=== PATIENT | female | born 1960 | race Caucasian/White ===

== ENCOUNTER → 2016-12-26 | Outpatient (CLI) | payer BC | END | disposition home or self-care (01) | LOC: MW.RT 19:46 | PROVIDERS: ATTEND Internal Medicine | DX: G47.33 Obstructive sleep apnea (adult) (pediatric) (principal) | CPT/HCPCS: 95811 ==

== ENCOUNTER 2017-08-03 06:18 | Day surgery (SDC) | payer BC ==
[~2017-08-03 06:18] MED LIST: Lactated Ringers 1,000 ML IV SCH; Sodium Chloride 0.9% 10 ML Syringe FLUSH PRN; Sodium Chloride 0.9% 2.5 ML Syringe FLUSH PRN
[2017-08-03] MEDS ORDERED: Propofol 200 MG/20 ML SDV ONE ×2 (07:15→07:55)
[2017-08-03] MEDS ORDERED: Lidocaine 2% 5 ML SDV ONE (07:15)
--- NOTE | 2017-08-03 07:22 | PCM.PREANE ---
Preanesthetic Assessment - Anesthesia/Transfusion/Family Hx Anesthesia History: Prior Anesthesia Without Reaction Family History of Anesthesia Reaction: No Transfusion History: No Prior Transfusion(s) Intubation History: Unknown - Review of Systems General: No Symptoms Pulmonary: No Symptoms Cardiovascular: No Symptoms Gastrointestinal: No Symptoms Neurological: No Symptoms Other: Reports: None - Physical Assessment O2 Sat by Pulse Oximetry: 93 Respiratory Rate: 16 Vital Signs: Last Vital Signs Temp 36.5 C 08/03/17 06:30 Pulse 60 08/03/17 06:30 Resp 16 08/03/17 06:30 BP 178/66 H 08/03/17 06:30 Pulse Ox 93 L 08/03/17 06:30 Height: 1.63 m Weight: 101.605 kg ASA Class: 3 Mental Status: Alert & Oriented x3 Airway Class: Mallampati = 2 Dentition: Reports: [place](s) (x2 upper front) Thyro-Mental Finger Breadths: 2 Mouth Opening Finger Breadths: 2 ROM/Head Extension: Limited/Partial Lungs: Clear to Auscultation, Normal Respiratory Effort Cardiovascular: Regular Rate, Regular Rhythm - Allergies Allergies/Adverse Reactions: Allergies Allergy/AdvReac Type Severity Reaction Status Date / Time Penicillins Allergy Cannot Verified 06/12/14 13:54 Remember - Blood Blood Available: No - Anesthesia Plan Pre-Op Medication Ordered: None - Acknowledgements Anesthesia Type Planned: MAC Pt an Appropriate Candidate for the Planned Anesthesia: Yes Alternatives and Risks of Anesthesia Discussed w Pt/Guardian: Yes Pt/Guardian Understands and Agrees with Anesthesia Plan: Yes PreAnesthesia Questionnaire HEENT History: Reports: Other (See Below) Other HEENT History: wears glasses, glen hearing aids Cardiovascular History: Reports: Heart Murmur, High Cholesterol, Hypertension, Other (See Below) (IHSS) Respiratory History: Reports: Sleep Apnea, SOB (after one block) Other Respiratory History: uses CPAP Gastrointestinal History: Reports: Other (See Below) Other Gastrointestinal History: occasional heartburn Musculoskeletal History: Reports: Arthritis, Back Pain, Chronic Other Musculoskeletal History: DJD Psychiatric History: Reports: Anxiety, Depression Endocrine/Metabolic History: Reports: Obesity/BMI 30+ - Past Surgical History Head Surgeries/Procedures: Reports: None Musculoskeletal Surgical History: Reports: Knee Replacement (rt. TKR) - SUBSTANCE USE Smoking Status *Q: Never Smoker Second Hand Smoke Exposure: Yes Days Per Week of Alcohol Use: 0 Recreational Drug Use History: No - HOME MEDS Home Medications: Home Meds Carvedilol 25 mg PO DAILY 01/31/15 [History] atorvaSTATin [Lipitor] 10 mg PO DAILY 01/31/15 [History] Cholecalciferol (Vitamin D3) [Vitamin D3] 1,000 units PO ASDIRECTED 07/31/17 [ History] FLUoxetine HCl [Fluoxetine HCl] 2 tab PO DAILY 07/31/17 [History] Furosemide 40 mg PO DAILY 07/31/17 [History] Lysine 500 mg PO ASDIRECTED PRN 07/31/17 [History] Multivitamin [Multivitamins] 1 tab PO ASDIRECTED 07/31/17 [History] Cyanocobalamin (Vitamin B12) [Vitamin B12] 1 tab PO ASDIRECTED 08/01/17 [History ] Psyllium [Metamucil] 1 tab PO ASDIRECTED PRN 08/01/17 [History] - CURRENT (IN HOUSE) MEDS Current Meds: Current Medications Lactated Ringer's (Ringers, Lactated) 1,000 mls @ 125 mls/hr IV ASDIRECTED [facility] Last Admin: 08/03/17 06:36 Dose: 125 mls/hr Sodium Chloride (Saline Flush) 10 ml FLUSH ASDIRECTED PRN PRN Reason: Keep Vein Open Sodium Chloride (Saline Flush) 2.5 ml FLUSH ASDIRECTED PRN PRN Reason: Keep Vein Open
[2017-08-03] MEDS ORDERED: Midazolam 1 MG/ML 2 ML SDV ONE (07:39)
--- NOTE | 2017-08-03 08:15 | PCM.OPNOTE ---
- General Post-Op/Procedure Note Date of Surgery/Procedure: 08/03/17 Operative Procedure(s): Diagnostic colonoscopy Findings: Small ulcerative type lesions in the distal colon Pre Op Diagnosis: IBS-D, change in bowel habits Post-Op Diagnosis: Diverticulosis, small colonic lesions Anesthesia Technique: [facility] Primary Surgeon: Veda Osei Condition: Good
--- NOTE | 2017-08-03 08:29 | PCM.POSTAN ---
POST ANESTHESIA ASSESSMENT - MENTAL STATUS Mental Status: Alert, Oriented - RESPIRATORY Respiratory Status: Respiratory Rate WNL - CARDIOVASCULAR CV Status: Pulse Rate WNL, Blood Pressure Stable - GASTROINTESTINAL GI Status: No Symptoms - PAIN Pain Score: 0 - POST OP HYDRATION Hydration Status: Adequate & Stable - OBSERVATIONS Free Text/Narrative:: no anesthesia problems
[2017-08-03 09:20] VITALS: BP 136/68
--- NOTE | 2017-08-03 20:52 | OR ---
SURGEON: RYANN HANEY MD DATE OF PROCEDURE: 08/03/2017 PREOPERATIVE DIAGNOSES: Change in bowel habits with a history of colon polyps and irritable bowel syndrome. POSTOPERATIVE DIAGNOSES: Diverticulosis, small mucosal lesions. PROCEDURE PERFORMED: Diagnostic colonoscopy. INSTRUMENT USED: Olympus colonoscope. ANESTHESIA: MAC. EXTENT OF EXAM: To the cecum. PREPARATION: Good. LIMITATIONS: None. INDICATION FOR EXAMINATION: The patient is a 56-year-old female, who presents with a history of colon polyps and IBS. Lately, she has been having a diarrhea that is worse than she has ever had before. The decision was made to proceed with a diagnostic colonoscopy. We discussed the procedure, expected perioperative course, and risks including bleeding, infection, or damage to surrounding structures, including perforation. The patient verbalized understanding and wishes to proceed. PROCEDURE IN DETAIL: The patient was brought to the endoscopy suite and placed in left lateral decubitus position. A time-out was completed verifying the patient's name, age, date of , allergies, and procedure to be performed. Monitored anesthesia care was induced and continuous oxygen was provided via nasal cannula. After adequate sedation was achieved, a digital rectal exam was performed. This exam was within normal limits. A well-lubricated colonoscope was then inserted in the rectum and advanced under direct visualization to the level of cecum. The cecum was identified by both visual and anatomic landmarks. Photograph was taken of the cecal cap. I was unable to retroflex the scope within the cecum. The scope was then fully withdrawn while examining the color, texture, anatomy, and integrity of the mucosa from the cecum to the anal canal. Towards the distal aspect of the colon there were small less than 1 mm ulcerative lesions along the colonic mucosa. These were scattered. Biopsies were taken of these lesions and sent as sigmoid colon biopsies. There were no polyps noted. The patient did have diverticulosis in the distal aspect of her colon as well. The scope was then brought in the rectum and retroflexed to allow visualization of the anal canal opening. This appeared normal and a photograph was taken. The scope was then straightened out and removed from the patient. The cecum to anus time was 9 minutes. The patient tolerated the procedure well and was taken to PACU in stable condition. ENDOSCOPIC DIAGNOSES: 1. Diverticulosis. 2. Mucosal lesions. RECOMMENDATIONS: Follow up in clinic in 2 weeks. MANISHA CHRISTINE /[id number]
== END 2017-08-03 08:59 | disposition home or self-care (01) ==
LOC: MW.SDS 06:18
PROVIDERS: ATTEND Surgery
DX: K52.9 Noninfective gastroenteritis and colitis, unspecified (principal); K57.30 Diverticulosis of large intestine without perforation or abscess without bleeding; Z86.010 Personal history of colon polyps; F41.9 Anxiety disorder, unspecified; F32.9 Major depressive disorder, single episode, unspecified; M19.90 Unspecified osteoarthritis, unspecified site; E78.00 Pure hypercholesterolemia, unspecified; I10 Essential (primary) hypertension; I42.1 Obstructive hypertrophic cardiomyopathy; N39.46 Mixed incontinence; G47.33 Obstructive sleep apnea (adult) (pediatric); Z88.0 Allergy status to penicillin; Z79.899 Other long term (current) drug therapy; Z99.89 Dependence on other enabling machines and devices; Z96.651 Presence of right artificial knee joint
CPT/HCPCS: 45380; 88305; J2250; J7120; 00810; J2704

== ENCOUNTER 2017-10-25 11:48 | Day surgery (SDC) | payer BC ==
[~2017-10-25 11:48] MED LIST changes: +Acetaminophen/HYDROcodone 325-5 MG Tab PO PRN; +Bupivacaine 0.25% 10 ML SDV INJECT SCH; +Clindamycin Phosphate in D5W 900 MG in Premix Bag 1 BAG IV SCH; +Lidocaine 2% 5 ML SDV ONE; +Midazolam 1 MG/ML 2 ML SDV ONE; +Ondansetron 4 MG/2 ML SDV ONE; +Propofol 200 MG/20 ML SDV ONE; -Sodium Chloride 0.9% 10 ML Syringe FLUSH PRN; -Sodium Chloride 0.9% 2.5 ML Syringe FLUSH PRN; +fentaNYL 100 MCG/2 ML SDV IVPUSH PRN; +fentaNYL 250 MCG/5 ML SDV ONE; +methylPREDNISolone Acetate 80 MG/ML SDV IARTIC SCH
[2017-10-25] MEDS ORDERED: Bupivacaine 0.5% 10 ML SDV ONE (12:23)
[2017-10-25] MEDS ORDERED: Lidocaine 1% 20 ML MDV ONE (12:23)
--- NOTE | 2017-10-25 12:37 | PCM.PREANE ---
Preanesthetic Assessment - Anesthesia/Transfusion/Family Hx Anesthesia History: Prior Anesthesia Reaction Other Type of Anesthesia Reaction Comment: vague recall, but was told she "crashed"..also itching from some medication Family History of Anesthesia Reaction: No Transfusion History: No Prior Transfusion(s) Intubation History: Unknown - Review of Systems General: No Symptoms Pulmonary: No Symptoms Cardiovascular: No Symptoms Gastrointestinal: No Symptoms Neurological: No Symptoms Other: Reports: None - Physical Assessment NPO Status Date: 10/24/17 Height: 1.63 m Weight: 106.141 kg ASA Class: 3 Mental Status: Alert & Oriented x3 Airway Class: Mallampati = 3 Dentition: Reports: [place](s) ROM/Head Extension: Full Lungs: Clear to Auscultation, Normal Respiratory Effort Cardiovascular: Regular Rate, Regular Rhythm, Murmurs - Allergies Allergies/Adverse Reactions: Allergies Allergy/AdvReac Type Severity Reaction Status Date / Time Penicillins Allergy Rash Verified 10/23/17 10:39 - Anesthesia Plan Pre-Op Medication Ordered: None - Acknowledgements Anesthesia Type Planned: General Anesthesia Pt an Appropriate Candidate for the Planned Anesthesia: Yes Alternatives and Risks of Anesthesia Discussed w Pt/Guardian: Yes Pt/Guardian Understands and Agrees with Anesthesia Plan: Yes Additional Comments: symptomatic gerd, htn, laura, Echo: mod , mild AI, mild TR, nl RV size, mild to mod elevation of RVSP, PreAnesthesia Questionnaire HEENT History: Reports: Hard of Hearing Other HEENT History: wears glasses, has bilateral hearing aides Cardiovascular History: Reports: Angina, Heart Failure, High Cholesterol, Hypertension Other Cardiovascular History: pre-op H&P states- hx of diastolic heart failure with subaortic left ventricular outflow tract obstruction- per Dr. Low. States has recent"chest pain"- no nitroglycerine Respiratory History: Reports: Sleep Apnea Other Respiratory History: uses CPAP Gastrointestinal History: Reports: Diverticulosis Other Gastrointestinal History: some heartburn Musculoskeletal History: Reports: Arthritis Other Musculoskeletal History: DJD Neurological History: Reports: Vertigo, Other (See Below) Other Neuro History: hx of motion sickness Psychiatric History: Reports: Anxiety, Depression Endocrine/Metabolic History: Reports: Obesity/BMI 30+ - Past Surgical History Head Surgeries/Procedures: Reports: None HEENT Surgical History: Reports: Adenoidectomy, Myringotomy w Tube(s), Tonsillectomy GI Surgical History: Reports: Colonoscopy Musculoskeletal Surgical History: Reports: Knee Replacement - SUBSTANCE USE Smoking Status *Q: Never Smoker Second Hand Smoke Exposure: Yes Days Per Week of Alcohol Use: 0 Recreational Drug Use History: No - HOME MEDS Home Medications: Home Meds Carvedilol 25 mg PO BID 01/31/15 [History] atorvaSTATin [Lipitor] 10 mg PO DAILY 01/31/15 [History] Cholecalciferol (Vitamin D3) [Vitamin D3] 1,000 units PO ASDIRECTED 07/31/17 [ History] FLUoxetine HCl [Fluoxetine HCl] 80 mg PO DAILY 07/31/17 [History] Furosemide 20 - 40 mg PO DAILY 07/31/17 [History] Lysine 500 mg PO ASDIRECTED PRN 07/31/17 [History] Multivitamin [Multivitamins] 1 tab PO ASDIRECTED 07/31/17 [History] Cyanocobalamin (Vitamin B12) [Vitamin B12] 1 tab PO ASDIRECTED 08/01/17 [History ] Psyllium [Metamucil] 1 tab PO ASDIRECTED PRN 08/01/17 [History] - CURRENT (IN HOUSE) MEDS Current Meds: Current Medications Hydrocodone Bitart/Acetaminophen ([place] 325-5 Mg) 1 - 2 tab PO Q4H PRN PRN Reason: Pain Bupivacaine HCl (Sensorcaine-Mpf 0.25%) 5 ml INJECT ONETIME MANNY Fentanyl (Sublimaze) 50 mcg IVPUSH .Q5MIN PRN PRN Reason: Pain Clindamycin Phosphate 900 mg/ (Premix) 50 mls @ 100 mls/hr IV ONCALL MANNY Lactated Ringer's (Ringers, Lactated) 1,000 mls @ 100 mls/hr IV ASDIRECTED MANNY Methylprednisolone Acetate (Depo-Medrol) 160 mg IARTIC ONETIME MANNY Discontinued Medications Bupivacaine HCl (Sensorcaine-Mpf 0.5%) Confirm Administered Dose 10 ml .ROUTE .STK-MED ONE Stop: 10/25/17 12:24 Fentanyl (Sublimaze) Confirm Administered Dose 250 mcg .ROUTE .STK-MED ONE Stop: 10/25/17 07:11 Lidocaine (Xylocaine-Mpf 2%) Confirm Administered Dose 5 ml .ROUTE .STK-MED ONE Stop: 10/25/17 07:10 Lidocaine HCl (Xylocaine 1%) Confirm Administered Dose 20 ml .ROUTE .STK-MED ONE Stop: 10/25/17 12:24 Midazolam HCl (Versed 1 Mg/Ml) Confirm Administered Dose 2 mg .ROUTE .[employer]-MED ONE Stop: 10/25/17 07:11 Ondansetron HCl (Zofran) Confirm Administered Dose 4 mg .ROUTE .[employer]-MED ONE Stop: 10/25/17 07:10 Propofol (Diprivan 20 Ml) Confirm Administered Dose 200 mg .ROUTE .[employer]-MED ONE Stop: 10/25/17 07:11
[2017-10-25] MEDS ORDERED: EPINEPHrine 1 MG/ML SDV ONE (13:17)
[2017-10-25] MEDS ORDERED: Bupivacaine 0.25% 10 ML SDV ONE (13:35)
--- NOTE | 2017-10-25 13:39 | PCM.OPNOTE ---
- General Post-Op/Procedure Note Date of Surgery/Procedure: 10/25/17 Operative Procedure(s): Excision left foot bony exostosis, L knee injection cortisone and Gel one Post-Op Diagnosis: DJD left midfoot with bony exostosis, DJD left knee Anesthesia Technique: General ET Tube Primary Surgeon: Maria Esther Gaytan Client Services Director: Jasmin Escalante in mLs: 5 Condition: Good Free Text/Narrative:: #[id number]
--- NOTE | 2017-10-25 14:14 | OR ---
SURGEON: Maria Esther Gaytan MD DATE OF PROCEDURE: 10/25/2017 PREOPERATIVE DIAGNOSES: 1. Degenerative joint disease, left midfoot with bony exostosis. 2. Degenerative joint disease, left knee. POSTOPERATIVE DIAGNOSES: 1. Degenerative joint disease, left midfoot with bony exostosis. 2. Degenerative joint disease, left knee. PROCEDURE: 1. Cortisone and Gel-One injection, left knee (a large joint). 2. Excision of bony exostosis, left foot. SQUAD BOSS: Jasmin Escalante PA-C. ANESTHESIA: General. ESTIMATED BLOOD LOSS: 5 mL. TOURNIQUET TIME: See operative record. COMPLICATIONS: None. DVT PROPHYLAXIS: Not indicated. IMPLANTS USED: None. BRIEF HISTORY: Dee Dee is a 57-year-old female who has had complaint of progressive left foot pain. Her pain is related primarily to shoe wear. She did have x-rays obtained, which did show degenerative changes in the midfoot region along with a bony exostosis dorsally. This appeared to be the area of a majority of her pain with the shoe wear. At that time, I recommended surgical intervention. Risks and goals of the procedure were discussed with the patient and were documented preoperatively. She agreed to proceed. The patient also has a history of degenerative changes in her left knee. She has tried injections in the past, which have given her short-term relief. I recommended that we repeat the injection today while she was under anesthesia. The risks and goals have been documented in her chart. She agreed to proceed. DESCRIPTION OF PROCEDURE: The patient was properly identified and brought to the operating room. She was transferred from the OR cart and placed on the operating table in a supine position. General anesthesia was administered. A time-out was performed to ensure correct site and procedure. Preoperative antibiotics were given. The surgical sites had been marked preoperatively. Using sterile technique, 3 mL of Gel-One solution, 2 mL of 1% lidocaine, 2 mL of 0.25% Marcaine, and 2 mL Depo-Medrol (80 mg/mL) were injected into the left knee joint via a superolateral retropatellar approach. A Band-Aid was then placed. The left lower extremity was then prepped in standard fashion using ChloraPrep solution. It was then sterilely draped. An Esmarch was used to exsanguinate the left lower extremity and the tourniquet was inflated to 250 mmHg. The site of the bony exostosis was identified. An incision was made over the dorsal aspect of the foot, centered over the exostosis. The subcutaneous tissues were dissected. Electrocautery was then used to incise directly over the exostosis. The periosteum was cleared from the edges. The exostosis was quite easy to identify. Using a combination of rongeur and osteotomes, the exostosis was removed. The bone was palpated and was felt to be at a neutral level, which would not cause any further shoe wear impingement. The wound was then copiously irrigated with saline solution. Bone wax was placed over the exposed bony areas. Tourniquet was then deflated. No excess bleeding was noted. Deep subcutaneous tissues were closed with 2-0 Monocryl. The skin was closed with a running 4-0 Monocryl suture. Steri-Strips and Benzoin were placed. 0.5% Marcaine was injected along the incisions following placement of the Steri-Strips. Xeroform gauze was placed over the wound and a bulky dressing was applied. She was awakened from her anesthetic and transferred back to the operating room cart. She was brought to recovery room in stable condition. All needle and sponge counts were correct. DAVID / NANCI /[id number]
--- NOTE | 2017-10-25 14:34 | PCM.POSTAN ---
POST ANESTHESIA ASSESSMENT - MENTAL STATUS Mental Status: Alert, Oriented - RESPIRATORY Respiratory Status: Respiratory Rate WNL, Airway Patent, O2 Saturation Stable, Supplemental Oxygen (per NC) - CARDIOVASCULAR CV Status: Pulse Rate WNL, Blood Pressure Stable - GASTROINTESTINAL GI Status: No Symptoms - POST OP HYDRATION Hydration Status: Adequate & Stable - OBSERVATIONS Free Text/Narrative:: Pt stable for discharge to phase II with no anesthesia complications.
[2017-10-25] MEDS ORDERED: Acetaminophen/HYDROcodone 325-10 MG Tab ONE (16:06)
[2017-10-25 17:06] VITALS: BP 158/70
== END 2017-10-25 16:45 | disposition home or self-care (01) ==
LOC: MW.SDS 11:48
PROVIDERS: ATTEND Orthopaedic Surgery
DX: M19.072 Primary osteoarthritis, left ankle and foot (principal); M89.9 Disorder of bone, unspecified; M17.12 Unilateral primary osteoarthritis, left knee; F41.9 Anxiety disorder, unspecified; F32.9 Major depressive disorder, single episode, unspecified; E78.5 Hyperlipidemia, unspecified; I10 Essential (primary) hypertension; E78.00 Pure hypercholesterolemia, unspecified; G47.33 Obstructive sleep apnea (adult) (pediatric); Z96.659 Presence of unspecified artificial knee joint; G47.30 Sleep apnea, unspecified; Z88.0 Allergy status to penicillin; Z79.899 Other long term (current) drug therapy; Z72.0 Tobacco use
CPT/HCPCS: 20610; 28120; A9270; J0171; J2250; J2405; J3010; J7120; 01480; J2704

== ENCOUNTER 2018-02-05 10:21 | Inpatient (IN) | payer BC ==
[~2018-02-05 10:21] MED LIST changes: -Acetaminophen/HYDROcodone 325-5 MG Tab PO PRN; -Bupivacaine 0.25% 10 ML SDV INJECT SCH; +Famotidine 20 MG/2 ML SDV IVPUSH SCH; -Lidocaine 2% 5 ML SDV ONE; -Midazolam 1 MG/ML 2 ML SDV ONE; -Ondansetron 4 MG/2 ML SDV ONE; -Propofol 200 MG/20 ML SDV ONE; +Ropivacaine 49.25 ML, Ketorolac 30 MG, EPINEPHrine 0.5 MG, cloNIDine 80 MCG in Sodium C... INJECT SCH; +Scopolamine 1.5 MG Transdermal Patch TRDERM SCH; +Tranexamic Acid 4,000 MG in Sodium Chloride 0.9% 100 ML IV SCH; -fentaNYL 100 MCG/2 ML SDV IVPUSH PRN; -fentaNYL 250 MCG/5 ML SDV ONE; -methylPREDNISolone Acetate 80 MG/ML SDV IARTIC SCH; +oxyCODONE ER 10 MG TAB.ER PO SCH
[2018-02-05] MEDS: Ketorolac 30 MG/ML SDV IVPUSH SCH ×4 (11:01→23:14)
[2018-02-05] MEDS: Acetaminophen 1,000 MG in Premix Bag 1 BAG IV SCH ×4 (11:02→23:11)
--- NOTE | 2018-02-05 11:14 | PCM.PREANE ---
Preanesthetic Assessment - Anesthesia/Transfusion/Family Hx Anesthesia History: Prior Anesthesia Without Reaction Other Type of Anesthesia Reaction Comment: vague recall, but was told she "crashed"..also itching from some medication Family History of Anesthesia Reaction: No Transfusion History: No Prior Transfusion(s) Intubation History: Unknown - Review of Systems General: No Symptoms Pulmonary: No Symptoms Cardiovascular: No Symptoms Gastrointestinal: No Symptoms Neurological: No Symptoms Other: Reports: None - Physical Assessment NPO Status Date: 02/04/18 Height: 1.63 m Weight: 99.79 kg ASA Class: 3 Mental Status: Alert & Oriented x3 Airway Class: Mallampati = 2 Dentition: Reports: Normal Dentition ROM/Head Extension: Full Lungs: Clear to Auscultation, Normal Respiratory Effort Cardiovascular: Regular Rate, Regular Rhythm - Allergies Allergies/Adverse Reactions: Allergies Allergy/AdvReac Type Severity Reaction Status Date / Time Penicillins Allergy Rash Verified 02/01/18 09:58 - Acknowledgements Anesthesia Type Planned: General Anesthesia Pt an Appropriate Candidate for the Planned Anesthesia: Yes Alternatives and Risks of Anesthesia Discussed w Pt/Guardian: Yes Pt/Guardian Understands and Agrees with Anesthesia Plan: Yes Additional Comments: PMH: IHHS, ASH, Moderate , mild AI, elevater RV systolic pressures, elevated LV and LQ end diastolic pressures, possible pulm htn, RV enlargement. PLAN: recomment GA instead of spinal to maintain filling pressures and to prevent afterload reduction which could cause problems with IHHS/AVH PreAnesthesia Questionnaire HEENT History: Reports: Other (See Below) Other HEENT History: wears glasses, glen hearing aids Cardiovascular History: Reports: Heart Murmur, High Cholesterol, Hypertension, Other (See Below) Other Cardiovascular History: pre-op H&P states- hx of diastolic heart failure with subaortic left ventricular outflow tract obstruction- per Dr. Low. superficial blood clots after vein stripping in left leg 4 yrs ago Respiratory History: Reports: Sleep Apnea, SOB Other Respiratory History: uses CPAP Gastrointestinal History: Reports: Other (See Below) Other Gastrointestinal History: occasional heartburn Genitourinary History: Reports: None Musculoskeletal History: Reports: Arthritis, Back Pain, Chronic Other Musculoskeletal History: DJD Neurological History: Reports: Vertigo, Other (See Below) Other Neuro History: hx of motion sickness Psychiatric History: Reports: Anxiety, Depression Endocrine/Metabolic History: Reports: Obesity/BMI 30+ Hematologic History: Reports: None Immunologic History: Reports: None Oncologic (Cancer) History: Reports: None Dermatologic History: Reports: None - Past Surgical History Head Surgeries/Procedures: Reports: None HEENT Surgical History: Reports: Adenoidectomy, Myringotomy w Tube(s), Tonsillectomy GI Surgical History: Reports: Colonoscopy Musculoskeletal Surgical History: Reports: Knee Replacement Other Musculoskeletal Surgeries/Procedures:: rt total knee arthroplasty - SUBSTANCE USE Smoking Status *Q: Never Smoker Second Hand Smoke Exposure: Yes Days Per Week of Alcohol Use: 0 Recreational Drug Use History: No - HOME MEDS Home Medications: Home Meds Carvedilol 25 mg PO BID 01/31/15 [History] atorvaSTATin [Lipitor] 10 mg PO DAILY 01/31/15 [History] Cholecalciferol (Vitamin D3) [Vitamin D3] 1,000 units PO ASDIRECTED 07/31/17 [ History] FLUoxetine HCl [Fluoxetine HCl] 80 mg PO DAILY 07/31/17 [History] Furosemide 20 - 40 mg PO DAILY 07/31/17 [History] Multivitamin [Multivitamins] 1 tab PO ASDIRECTED 07/31/17 [History] Cyanocobalamin (Vitamin B12) [Vitamin B12] 1 tab PO ASDIRECTED 08/01/17 [History ] Psyllium [Metamucil] 1 tab PO ASDIRECTED PRN 08/01/17 [History] - CURRENT (IN HOUSE) MEDS Current Meds: Current Medications Famotidine (Pepcid) 40 mg IVPUSH ONARRIVE MANNY Last Admin: 02/05/18 11:01 Dose: 40 mg Acetaminophen 1,000 mg/ Premix 100 mls @ 400 mls/hr IV ONARRIVE MANNY Last Admin: 02/05/18 11:02 Dose: 400 mls/hr Clindamycin Phosphate 900 mg/ (Premix) 50 mls @ 100 mls/hr IV ONCALL MANNY Ropivacaine 49.25 ml/Ketorolac Tromethamine 30 mg/Epinephrine HCl 0.5 mg/ Clonidine HCl 80 mcg/ Sodium Chloride 100 mls @ 50 mls/sec INJECT ASDIRECTED [facility] Lactated Ringer's (Ringers, Lactated) 1,000 mls @ 100 mls/hr IV ASDIRECTED [facility] Last Admin: 02/05/18 10:42 Dose: 100 mls/hr Tranexamic Acid 4,000 mg/ (Sodium Chloride) 140 mls @ 600 mls/hr IV ASDIRECTED MANNY Ketorolac Tromethamine (Toradol) 30 mg IVPUSH ONARRIVE [facility] Last Admin: 02/05/18 11:01 Dose: 30 mg Oxycodone HCl (Oxycontin) 10 mg PO ONARRIVE [facility] Last Admin: 02/05/18 11:01 Dose: 10 mg Scopolamine (Transderm-Scop) 1.5 mg TRDERM ONARRIVE [facility] Last Admin: 02/05/18 11:00 Dose: 1.5 mg Discontinued Medications Tranexamic Acid (Cyklokapron) Confirm Administered Dose 4,000 mg .ROUTE .[facility] ONE Stop: 02/05/18 07:23
[2018-02-05] MEDS ORDERED: fentaNYL 100 MCG/2 ML SDV ONE (11:24)
[2018-02-05] MEDS ORDERED: fentaNYL 250 MCG/5 ML SDV ONE (11:24)
[2018-02-05] MEDS ORDERED: Midazolam 1 MG/ML 2 ML SDV ONE (11:24)
[2018-02-05] MEDS ORDERED: Lidocaine 2% 5 ML SDV ONE (11:24)
[2018-02-05] MEDS ORDERED: Propofol 200 MG/20 ML SDV ONE (11:24)
[2018-02-05] MEDS ORDERED: Etomidate 2 MG/ML 20 ML SDV IVPUSH ONE (11:25)
[2018-02-05] MEDS ORDERED: Ondansetron 4 MG/2 ML SDV ONE (11:25)
--- NOTE | 2018-02-05 13:48 | PCM.OPNOTE ---
- General Post-Op/Procedure Note Date of Surgery/Procedure: 02/05/18 Operative Procedure(s): Left TKA Post-Op Diagnosis: DJD left knee Anesthesia Technique: General ET Tube Primary Surgeon: Maria Esther Gaytan Business Operations Manager: Jasmin Escalante in mLs: 50 Condition: Good Free Text/Narrative:: tt=48 min #[id number]
[2018-02-05] MEDS ORDERED: Ondansetron 4 MG/2 ML SDV IV PRN (13:53)
[2018-02-05] MEDS ORDERED: Aluminum Hydroxide/Magnesium Hydroxide/Simethicone Susp 30 ML Cup PO PRN (13:54)
[2018-02-05] MEDS ORDERED: Bisacodyl 10 MG Supp RECTAL PRN (13:54)
[2018-02-05] MEDS ORDERED: oxyCODONE 5 MG Tab PO PRN (13:54)
[2018-02-05] MEDS ORDERED: Psyllium Husk Powder Sugar Free 5.85 GM Packet PO PRN (13:57)
[2018-02-05] MEDS ORDERED: Multivitamins with Iron/Calcium/Folic Acid/Minerals Tab PO SCH (14:00)
[2018-02-05] MEDS ORDERED: Morphine PF 30 MG/30 ML PCA Vial IV SCH (14:00)
--- NOTE | 2018-02-05 14:52 | OR ---
SURGEON: Maria Esther Gaytan MD DATE OF PROCEDURE: 02/05/2018 PREOPERATIVE DIAGNOSIS: Degenerative joint disease, left knee, tricompartmental. POSTOPERATIVE DIAGNOSIS: Degenerative joint disease, left knee, tricompartmental. PROCEDURE: Left total knee arthroplasty using patient specific instrumentation. JUDGE: Jasmin Escalante PA-C. ANESTHESIA: General. ESTIMATED BLOOD LOSS: 50 mL. TOURNIQUET TIME: 48 minutes. COMPLICATIONS: None. DVT PROPHYLAXIS: PAS boot and ANGEL hose to the nonoperative leg. IMPLANTS USED: Nancy NextGen femoral component size D (LPS), tibial component size 3, 12 mm all-polyethylene articular insert, and 35 mm all-polyethylene patella. INTRAOPERATIVE FINDINGS: Severe tricompartmental degenerative changes. Grade 4 chondromalacia was noted in all three compartments. Osteophyte formation was also noted. She had no significant synovitis. BRIEF HISTORY: Dee Dee is a 57-year-old female, who has had complaint of progressive left knee pain. She has previously undergone a right total knee arthroplasty and has done well. Due to her lack of response to conservative treatment, I did recommend that she undergo surgical treatment. The risks and goals of the procedure were discussed with the patient and were documented preoperatively. She agreed to proceed. DESCRIPTION OF PROCEDURE: The patient was properly identified and brought to the operating room. The patient was transferred from the operating room cart and placed on the operating room table. Spinal anesthesia was administered by the anesthesia team. After adequate sedation was achieved, a well-padded tourniquet was applied to the lower extremity. A Mchugh catheter was then placed. The lower extremity was then prepped in standard fashion using ChloraPrep solution. It was then sterilely draped. A time-out was performed to ensure correct site and procedure. Preoperative antibiotics were given along with one gram of tranexamic acid IV. The surgical site had been marked preoperatively. An Esmarch was used to exsanguinate the lower extremity and the tourniquet was inflated. An incision was made centered over the anterior aspect of the knee. The subcutaneous tissues were dissected down to the level of the fascia. A medial parapatellar approach was made. A partial medial release was also performed. The knee was then brought into extension and a portion of the infrapatellar fat pad was excised. The knee was then brought into flexion. The femoral patient specific cutting block was placed. This fit anatomically. The pins were then placed. The 0 degree distal femoral cutting guide was placed over the distal femur pins. The femur was then resected using an oscillating saw. The pins were then removed and were placed into the previously placed distal drill holes in the femoral condyles. Both Emily's and the epicondylar axis were marked with electric cautery. The cutting block was then placed. This was pinned into position in a slightly lateral and externally rotated position. This was then secured. The resection guide was used to check to make sure that the anterior femoral cortex would not be notched. The anterior condylar cut was then made. No notching of the femur was noted. This was followed by the posterior condylar, posterior chamfer, and anterior chamfer cuts. The narrow reciprocating saw was then used to cut the base of the trochlear recess and score the edges. The finishing guide was then removed and the trochlear recess cuts and remaining bone cuts were finished. The notch cutting block was then placed into position and the notch cut was made without difficulty using the reciprocating saw. This was then removed. The notch block that had been cut along with a portion of the cruciate ligaments were also resected. We then turned our attention to the tibia. The posterior cruciate ligament retractor was used to bring the tibial surface anteriorly. The patient specific tibial block was then placed. This fit anatomically. It was pinned into position. The block was then removed. The 0 degree proximal tibia cutting guide was then placed over the guide pin. This was secured with a Kiran clamp. The resection depth was checked using the resection guide. A proximal tibia cut was then made using an oscillating saw. Care was taken to protect the patellar tendon. The proximal tibia bone was then removed. The remainder of the medial and lateral meniscus were also excised. Care was taken to protect the popliteus tendon. The proximal tibia was then sized. The remainder of the osteophytes along the proximal tibia were also resected. The distal femur was elevated to expose the posterior knee. The posterior capsule was stripped off the distal femur using a curved osteotome. The posterior osteophytes were also excised. The posterior capsule, along with the medial and lateral gutters, were then injected with the standard, preoperatively prepared, mixture consisting of clonidine, epinephrine, ropivacaine, Toradol, and saline, unless any allergies were noted preoperatively. The femoral trial was then placed. This was followed by the tibial component with a size 10 trial polyethylene. The knee was brought into full extension. Stability to varus and valgus stress was checked in extension and in flexion. There appeared to be good range of motion and stability. The knee was then brought into full extension. The patella was everted. The patella was resected to a thickness of 15 millimeters. It was then sized. Once the appropriate size was determined, the patella was prepared by placing the patella button in a slightly superior and medial position. The patella button trial was then placed and the knee was again taken through a range of motion. There was excellent patellar tracking using the no-touch technique. Alignment was checked with a drop enrrique. The trial components were then removed. The knee was brought into full flexion and the tibia was prepared in a standard fashion placing the tibial plate in slight external rotation with the center of the prosthesis lined up with the medial aspect of the tibial tubercle. The wound was then copiously irrigated with Pulsavac solution to remove any bony debris. The bone ends were then suctioned dry. Cement was prepared in the usual fashion on the back table. The cement was then placed onto the proximal tibia and the tibial component was placed without difficulty. This was malleted into position. Excess cement was cleared. The femoral component was cemented in a similar manner. A trial polyethylene was then placed and the knee was brought into full extension. An axial load was applied. The patella button was then cemented into place and a patella clamp was placed to hold pressure. The cement was allowed to cure. The wound was again copiously irrigated with saline solution using a Pulsavac pin game machine inspector. Following this, 1 g of tranexamic acid was applied to the wound topically. After the cement had adequately hardened, the patella clamp was released. The knee was again taken through a range of motion. It was determined at this time the correct thickness of polyethylene. The trial polyethylene insert was then removed. The knee was brought into flexion and the tibial tray was suctioned dry. Any excess cement was cleared from the tibial and femoral components. The knee was then brought into approximately 45 degrees of flexion. The tourniquet was deflated. No excess bleeding was noted from the posterior aspect of the knee. An additional gram of tranexamic acid was given IV. The previously determined sized polyethylene insert was then placed and locked into position without difficulty. The knee was again taken through a range of motion with no change in stability, either in flexion or extension. The fascia layer was closed with #1 Vicryl. The subcutaneous tissue was closed with 2-0 Vicryl and the skin was closed with a vaibhav. Xeroform gauze was placed over the wound and a bulky dressing was applied. The patient was then awakened from the anesthetic and transferred back to the operating cart. The patient was brought to recovery room in stable condition. All needle and sponge counts were correct. DAVID / NANIC /[id number]
--- NOTE | 2018-02-05 17:08 | PCM.POSTAN ---
POST ANESTHESIA ASSESSMENT - MENTAL STATUS Mental Status: Alert, Oriented - VITAL SIGNS Pulse Rate: 51 SaO2: 94 Resp Rate: 16 Blood Pressure: 155/75 - RESPIRATORY Respiratory Status: Respiratory Rate WNL, Airway Patent, O2 Saturation Stable, Supplemental Oxygen (5L per NC with home nasal cpap used while drowsey ) - CARDIOVASCULAR CV Status: Pulse Rate WNL, Blood Pressure Stable, Slow Pulse Rate (comparable to preop status) - GASTROINTESTINAL GI Status: No Symptoms - PAIN Pain Score: 3 - POST OP HYDRATION Hydration Status: Adequate & Stable - OBSERVATIONS Free Text/Narrative:: Pt kept for an extensive period in PACU as she seems extra sensitive to narcotics/ more sedate with decreased depth of breathing. No additional narcotics have been given since approx 3-3:30PM (per PACU staff). Pt is more alert now and receiving IV Ofirmev and tordol as scheduled and states that pain is well controlled. Due to patient's current health problems, combined with her ASH and increased sensitivity to narcotics, we will place her in ICU overnight. Dr. Gaytan is aware and onboard with this plan. Will continue pt's home cpap tonight as she is resting/sleeping.
--- NOTE | 2018-02-05 17:50 | PCM.CONS ---
H&P History of Present Illness - General Date of Service: 02/05/18 Admit Problem/Dx: Admission Diagnosis/Problem Admission Diagnosis/Problem Replacement of total knee joint Source of Information: Patient History Limitations: Reports: No Limitations - History of Present Illness Initial Comments - Free Text/Narative: 57-year-old female that is admitted status post total left knee replacement done by Dr. Maria Esther Wang. Patient has a past medical history of hypertension , obstructive sleep apnea, dyslipidemia, diastolic heart failure with subaortic left ventricular outflow tract obstruction. She has followed previously with a manufacturing engineer supervisor secondary to his heart condition but it has been a while since she has been seen by a manufacturing engineer supervisor. Patient is currently in the ICU status post the knee replacement. She had low O2 following anesthesia and was kept in the PACU for an extended amount of time. Patient is doing well and currently using her CPAP machine. She notes mild pain in the left knee but denies any other concerns at this time. She denies any chest pain, palpitations, wheezing or abdominal pain, nausea, vomiting. She does state that she wants to eat. We have been consulted on this case secondary to the patient's cardiac history. Currently her vital signs are heart rate 51, blood pressure 155/75 and she is 92 % while using her CPAP machine. - Related Data Allergies/Adverse Reactions: Allergies Allergy/AdvReac Type Severity Reaction Status Date / Time Penicillins Allergy Rash Verified 02/01/18 09:58 Home Medications: Home Meds Carvedilol 25 mg PO BID 01/31/15 [History] atorvaSTATin [Lipitor] 10 mg PO DAILY 01/31/15 [History] Cholecalciferol (Vitamin D3) [Vitamin D3] 1,000 units PO ASDIRECTED 07/31/17 [ History] FLUoxetine HCl [Fluoxetine HCl] 80 mg PO DAILY 07/31/17 [History] Furosemide 20 - 40 mg PO DAILY 07/31/17 [History] Multivitamin [Multivitamins] 1 tab PO ASDIRECTED 07/31/17 [History] Cyanocobalamin (Vitamin B12) [Vitamin B12] 1 tab PO ASDIRECTED 08/01/17 [History ] Psyllium [Metamucil] 1 tab PO ASDIRECTED PRN 08/01/17 [History] Past Medical History HEENT History: Reports: Other (See Below) Other HEENT History: wears glasses, glen hearing aids Cardiovascular History: Reports: Heart Murmur, High Cholesterol, Hypertension, Other (See Below) Other Cardiovascular History: pre-op H&P states- hx of diastolic heart failure with subaortic left ventricular outflow tract obstruction- per Dr. Low. superficial blood clots after vein stripping in left leg 4 yrs ago Respiratory History: Reports: Sleep Apnea, SOB Other Respiratory History: uses CPAP Gastrointestinal History: Reports: Other (See Below) Other Gastrointestinal History: occasional heartburn Genitourinary History: Reports: None Musculoskeletal History: Reports: Arthritis, Back Pain, Chronic Other Musculoskeletal History: DJD Neurological History: Reports: Vertigo, Other (See Below) Other Neuro History: hx of motion sickness Psychiatric History: Reports: Anxiety, Depression Endocrine/Metabolic History: Reports: Obesity/BMI 30+ Hematologic History: Reports: None Immunologic History: Reports: None Oncologic (Cancer) History: Reports: None Dermatologic History: Reports: None - Past Surgical History Head Surgeries/Procedures: Reports: None HEENT Surgical History: Reports: Adenoidectomy, Myringotomy w Tube(s), Tonsillectomy GI Surgical History: Reports: Colonoscopy Musculoskeletal Surgical History: Reports: Knee Replacement Other Musculoskeletal Surgeries/Procedures:: rt total knee arthroplasty Social & Family History - Family History Family Medical History: Noncontributory - Tobacco Use Smoking Status *Q: Never Smoker Second Hand Smoke Exposure: Yes - Alcohol Use Days Per Week of Alcohol Use: 0 - Recreational Drug Use Recreational Drug Use: No Drug Use in Last 12 Months: No H&P Review of Systems - Review of Systems: Review Of Systems: See Below General: Reports: No Symptoms HEENT: Reports: No Symptoms Pulmonary: Reports: Shortness of Breath (Using CPAP machine.) Cardiovascular: Reports: No Symptoms Gastrointestinal: Reports: No Symptoms Genitourinary: Reports: No Symptoms Musculoskeletal: Reports: Other (Left knee pain status post total left knee replacement.) Skin: Reports: No Symptoms Psychiatric: Reports: No Symptoms Neurological: Reports: No Symptoms Hematologic/Lymphatic: Reports: No Symptoms Immunologic: Reports: No Symptoms Exam - Exam Exam: See Below - Vital Signs Vital Signs: Last Vital Signs Temp 98.2 F 02/05/18 13:49 Pulse 51 L 02/05/18 17:08 Resp 16 02/05/18 17:08 BP 155/75 H 02/05/18 17:08 Pulse Ox 94 L 02/05/18 17:08 Weight: 220 lb - Exam Quality Assessment: Supplemental Oxygen (CPAP machine) General: Alert, Oriented, Cooperative HEENT: Conjunctiva Clear, EACs Clear, Hearing Intact, Mucosa Moist & [place] Neck: Supple, Trachea Midline, 2 Lungs: Clear to Auscultation, Normal Respiratory Effort, Other (CPAP mask in place.) Cardiovascular: Regular Rhythm, Bradycardia GI/Abdominal Exam: Normal Bowel Sounds, Soft, Non-Tender, No Organomegaly, No Distention, No Abnormal Bruit, No Mass, Pelvis Stable Rectal (Female) Exam: Normal Rectal Tone Extremities: Other (Left knee is dressed following her total left knee replacement and Polar Care is in place.) Peripheral Pulses: 2+: Radial (L), Radial (R), Posterior Tibial (L), Posterior Tibial (R) Skin: Warm, Dry, Intact Neuro Extensive - Mental Status: Alert, Oriented x3, Normal Mood/Affect, Normal Cognition Psychiatric: Alert, Normal Affect, Normal Mood - Patient Data Lab Results Last 24 hrs: Laboratory Results - last 24 hr 02/05/18 Range/Units 10:55 Blood Type AB POSITIVE Antibody Screen NEGATIVE Consult PN Assessment/Plan POD#: 0 Procedures: Procedures ASSAY OF NATRIURETIC PEPTIDE (11/09/16) ASSAY THYROID STIM HORMONE (08/23/17) CARDIOVASCULAR STRESS TEST (10/14/16) CHEST X-RAY 2VW FRONTAL&LATL (11/09/16) COLONOSCOPY AND BIOPSY (08/03/17) DRAIN/INJ JOINT/BURSA W/O US (10/25/17) ELECTROCARDIOGRAM TRACING (07/10/15) EMERGENCY DEPT VISIT (01/31/15) GLYCOSYLATED HEMOGLOBIN TEST (08/23/17) HT MUSCLE IMAGE SPECT MULT (10/14/16) HT MUSCLE IMAGE SPECT SING (10/24/16) INFLUENZA ASSAY W/OPTIC (01/31/15) LIPID PANEL (06/12/14) METABOLIC PANEL TOTAL CA (11/09/16) MRI JNT OF LWR EXTRE W/O DYE (01/04/18) PART REMOVAL OF ANKLE/HEEL (10/25/17) POLYSOM 6/>YRS CPAP 4/> PARM (12/26/16) ROUTINE VENIPUNCTURE (11/09/16) TISSUE EXAM BY PATHOLOGIST (10/26/17) TTE W/DOPPLER COMPLETE (09/07/16) X-RAY EXAM HIP UNI 2-3 VIEWS (09/27/17) X-RAY EXAM KNEE 4 OR MORE (09/27/17) X-RAY EXAM OF FOOT (11/07/17) X-RAY EXAM OF FOOT (09/27/17) (1) Status post left knee replacement SNOMED Code(s): 4950105600535, 5127288155415 Code(s): Z96.652 - PRESENCE OF LEFT ARTIFICIAL KNEE JOINT Current Visit: Yes (2) Left ventricular outflow obstruction SNOMED Code(s): 372520489 Code(s): Q24.8 - OTHER SPECIFIED CONGENITAL MALFORMATIONS OF HEART Current Visit: Yes Problem List Initiated/Reviewed/Updated: Yes Plan: 57-year-old female with a history of hypertension, obstructive sleep apnea, dyslipidemia and diastolic heart 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 Maria Esther Gaytan. We have been consulted secondary to the patient's cardiac history and to watch her blood pressure, heart rate and volume status. #1. Status post total left knee replacement: -Orthopedics is following. #2. Diastolic heart failure with subaortic left ventricular outflow tract obstruction: -We will watch the patient's blood pressure and heart rate. We need to be careful about fluids to ensure that we don't overload the patient. #3. Obstructive sleep apnea: -Patient has her CPAP machine from home and will use here in the hospital. #4. Hypertension: -Home blood pressure medications will be restarted. DVT prophylaxis: Recommend when deemed appropriate by orthopedics. They have started the patient on aspirin twice a day.
--- NOTE | 2018-02-05 19:02 | CR ---
EXAM DATE: 02/05/18 PATIENT'S AGE: 57 Patient: SURESH VARGAS Facility: [place], [place] Site . Site : [id number] Study: XRay Knee Left [id number]/30/2018 3:21:27 PM Ordering Physician: Lucila Mayo Final Report: INDICATION: Postop left knee. TECHNIQUE: AP and cross-table lateral views of the left knee. COMPARISON: 09/27/2017. FINDINGS: Immediate postop changes of left total knee arthroplasty. Prosthetic components well-seated and aligned. IMPRESSION: Immediate postop changes of left total knee arthroplasty without evidence of complication. Dictated by Harris Godfrey MD @ Feb 05 2018 3:58PM (Electronic Signature) Report Signed by Proxy. MARYCHUY
[2018-02-05] MEDS ORDERED: Clindamycin Phosphate in D5W 900 MG in Premix Bag 1 BAG IV SCH ×2 (20:00)
[2018-02-05] MEDS ORDERED: Lactated Ringers 1,000 ML IV SCH (20:45)
[2018-02-05] MEDS: Carvedilol 25 MG Tab PO SCH (20:52)
[2018-02-05] MEDS: Docusate Sodium 100 MG Cap PO SCH (20:52)
[2018-02-05] MEDS ORDERED: oxyCODONE ER 10 MG TAB.ER PO SCH (21:00)
[2018-02-05] MEDS: Clindamycin Phosphate in D5W 900 MG in Premix Bag 1 BAG IV SCH ×2 (23:09)
[2018-02-06] MEDS: Acetaminophen 1,000 MG in Premix Bag 1 BAG IV SCH (04:55)
[2018-02-06] MEDS: Ketorolac 30 MG/ML SDV IVPUSH SCH (04:55)
[2018-02-06] MEDS: Clindamycin Phosphate in D5W 900 MG in Premix Bag 1 BAG IV SCH ×2 (06:13)
[2018-02-06 06:33] LABS: CHLORIDE,CL 106 mmol/L (98-107); SODIUM,NA 140 mmol/L (136-145)
--- NOTE | 2018-02-06 07:36 | PCM48HPAN ---
Post Anesthesia Note - EVALUATION WITHIN 48HRS OF ANESTHETIC Vital Signs in Normal Range: Yes Patient Participated in Evaluation: Yes Respiratory Function Stable: Yes Airway Patent: Yes Cardiovascular Function Stable: Yes Hydration Status Stable: Yes Pain Control Satisfactory: Yes Nausea and Vomiting Control Satisfactory: Yes Mental Status Recovered: Yes Pulse Rate: 67 Resp Rate: 15 Blood Pressure: 149/75 Pulse Rate: 67 - COMMENTS/OBSERVATIONS Free Text/Narrative:: Pt did well overnight - good pain control with minimal narcotic use overnight. No nausea.
[2018-02-06] MEDS ORDERED: Acetaminophen/oxyCODONE 325-5 MG Tab PO PRN (08:00)
--- NOTE | 2018-02-06 08:08 | PCM.SURGPN ---
<Rolando Young - Last Filed: 02/06/18 08:09> - General Info Date of Service: 02/06/18 Date of Surgery/Procedure: 02/05/18 POD#: 1 - Review of Systems Systems Review Comment:: NAEO. Pain in left knee is main complaint. No numbness or tingling in extremity. Tolerating oral intake. Denies nausea, vomiting, fever, chills. No new chest pain or SOB. Has been out of bed. Therapies have not yet evaluated. Cao in place. - Patient Data Vitals - Most Recent: Last Vital Signs Temp 36.4 C 02/06/18 04:00 Pulse 67 02/06/18 07:35 Resp 15 02/06/18 07:35 BP 149/75 H 02/06/18 07:35 Pulse Ox 95 02/06/18 07:00 Weight - Most Recent: 99.79 kg I&O - Last 24 Hours: Intake & Output 02/05/18 02/06/18 02/06/18 22:59 06:59 14:59 Intake Total 3550 1140 Output Total 450 500 Balance 3100 640 Lab Results Last 24 Hrs: Laboratory Results - last 24 hr 02/05/18 02/06/18 02/06/18 Range/Units 10:55 05:03 05:03 Hgb 10.6 L (12.0-16.0) g/dL Hct 33.4 L (36.0-46.0) % Sodium 140 (136-145) mmol/L Potassium 4.1 (3.5-5.1) mmol/L Chloride 106 (98-107) mmol/L Carbon Dioxide 29.6 (21.0-32.0) mmol/L BUN 14 (7.0-18.0) mg/dL Creatinine 0.8 (0.6-1.0) mg/dL Est Cr Clr Drug Dosing 65.38 mL/min Estimated GFR (MDRD) > 60.0 ml/min Glucose 101 (74-106) mg/dL Calcium 8.2 L (8.5-10.1) mg/dL Blood Type AB POSITIVE Antibody Screen NEGATIVE Med Orders - Current: Current Medications Al Hydroxide/Mg Hydroxide (Mag-Al Plus) 30 ml PO Q4H PRN PRN Reason: indigestion Aspirin (Aspirin) 325 mg PO BID MANNY Atorvastatin Calcium (Lipitor) 10 mg PO DAILY [facility] Bisacodyl (Dulcolax) 10 mg RECTAL DAILY PRN PRN Reason: Constipation Carvedilol (Coreg) 25 mg PO BID [facility] Last Admin: 02/05/18 20:52 Dose: 25 mg Celecoxib (Celebrex) 200 mg PO BID [facility] Docusate Sodium (Colace) 100 mg PO BID [facility] Last Admin: 02/05/18 20:52 Dose: 100 mg Famotidine (Pepcid) 40 mg IVPUSH ONARRIVE [facility] Last Admin: 02/05/18 11:01 Dose: 40 mg Famotidine (Pepcid) 40 mg PO DAILY [facility] Fluoxetine HCl (Prozac) 80 mg PO DAILY [facility] Furosemide (Lasix) 20 - 40 mg PO DAILY [facility] Acetaminophen 1,000 mg/ Premix 100 mls @ 400 mls/hr IV ONARRIVE [facility] Last Infusion: 02/05/18 11:17 Dose: Infused Ropivacaine 49.25 ml/Ketorolac Tromethamine 30 mg/Epinephrine HCl 0.5 mg/ Clonidine HCl 80 mcg/ Sodium Chloride 100 mls @ 50 mls/sec INJECT ASDIRECTED [facility] Tranexamic Acid 4,000 mg/ (Sodium Chloride) 140 mls @ 600 mls/hr IV ASDIRECTED [facility] Lactated Ringer's (Ringers, Lactated) 1,000 mls @ 20 mls/hr IV ASDIRECTED [facility] Last Admin: 02/05/18 21:00 Dose: 20 mls/hr Ketorolac Tromethamine (Toradol) 30 mg IVPUSH ONARRIVE [facility] Last Admin: 02/05/18 11:01 Dose: 30 mg Morphine Sulfate (Morphine Bsa/Aml Compliance Officer 30 Mg In 30 Ml) 30 mg IV ASDIRECTED [facility]; Protocol Last Admin: 02/05/18 14:15 Dose: 30 mg Morphine Sulfate (Morphine) 1 - 3 mg IVPUSH Q3H PRN PRN Reason: Pain Multivitamins/Minerals (Thera M Plus) 1 tab PO ASDIRECTED [facility] Ondansetron HCl (Zofran) 4 mg IV Q6HR PRN PRN Reason: NAUSEA/VOMITING Oxycodone HCl (Oxycontin) 10 mg PO ONARRIVE [facility] Last Admin: 02/05/18 11:01 Dose: 10 mg Oxycodone HCl (Oxycontin) 10 mg PO Q12HR [facility] Last Admin: 02/05/18 20:56 Dose: 10 mg Oxycodone/Acetaminophen (Percocet 325-5 Mg) 1 - 2 tab PO Q4H PRN PRN Reason: Pain Psyllium Husk (Metamucil Sugar Free) 1 pkt PO ASDIRECTED PRN PRN Reason: Constipation Scopolamine (Transderm-Scop) 1.5 mg TRDERM ONARRIVE [facility] Last Admin: 02/05/18 11:00 Dose: 1.5 mg Discontinued Medications Etomidate (Amidate) Confirm Administered Dose 40 mg IVPUSH .STK-MED ONE Stop: 02/05/18 11:26 Fentanyl (Sublimaze) Confirm Administered Dose 100 mcg .ROUTE .STK-MED ONE Stop: 02/05/18 11:25 Fentanyl (Sublimaze) Confirm Administered Dose 250 mcg .ROUTE .STK-MED ONE Stop: 02/05/18 11:25 Clindamycin Phosphate 900 mg/ (Premix) 50 mls @ 100 mls/hr IV ONCALL [facility] Last Admin: 02/05/18 11:29 Dose: 100 mls/hr Lactated Ringer's (Ringers, Lactated) 1,000 mls @ 100 mls/hr IV ASDIRECTED [facility] Last Admin: 02/05/18 10:42 Dose: 100 mls/hr Acetaminophen 1,000 mg/ Premix 100 mls @ 400 mls/hr IV Q6H [facility] Stop: 02/06/18 05:14 Last Admin: 02/06/18 04:55 Dose: 400 mls/hr Acetaminophen (Ofirmev) Confirm Administered Dose 100 mls @ as directed IV .STK- MED ONE Stop: 02/05/18 15:37 Clindamycin Phosphate 900 mg/ (Premix) 50 mls @ 100 mls/hr IV Q8H [facility] Stop: 02/06/18 07:29 Last Admin: 02/06/18 06:13 Dose: 100 mls/hr Ketorolac Tromethamine (Toradol) 30 mg IVPUSH Q6H [facility] Stop: 02/06/18 05:00 Last Admin: 02/06/18 04:55 Dose: 30 mg Lidocaine (Xylocaine-Mpf 2%) Confirm Administered Dose 10 ml .ROUTE .STK-MED ONE Stop: 02/05/18 11:25 Midazolam HCl (Versed 1 Mg/Ml) Confirm Administered Dose 2 mg .ROUTE .STK-MED ONE Stop: 02/05/18 11:25 Ondansetron HCl (Zofran) Confirm Administered Dose 4 mg .ROUTE .STK-MED ONE Stop: 02/05/18 11:26 Oxycodone HCl (Oxycodone) 5 - 10 mg PO Q4H PRN PRN Reason: Pain Stop: 02/06/18 08:00 Last Admin: 02/06/18 06:13 Dose: 5 mg Propofol (Diprivan 20 Ml) Confirm Administered Dose 400 mg .ROUTE .STK-MED ONE Stop: 02/05/18 11:25 Tranexamic Acid (Cyklokapron) Confirm Administered Dose 4,000 mg .ROUTE .STK- MED ONE Stop: 02/05/18 07:23 - Exam Wound/Incisions: Dressing Dry and Intact General: Alert, No Acute Distress Lungs: Clear to Auscultation Cardiovascular: Regular Rate GI/Abdominal Exam: Soft, Non-Tender Extremities: No Pedal Edema, Other (Left lower extremity dressing clean and intact. Polar ice in place. Distal extremity gross motor and sensation intact. Warm and perfused. ) - Problem List Review Problem List Initiated/Reviewed/Updated: Yes - My Orders Last 24 Hours: Active Orders 24 hr Category Date Time Status Patient Status [ADT] Routine ADT 02/05/18 17:01 Active Activity as Tolerated [RC] .Routine Care 02/05/18 13:53 Active CPAP Adult [RT BiPAP/CPAP] [RC] ASDIRECTED Care 02/05/18 14:53 Active Dressing Change [Wound Care] [RC] Q12H Care 02/05/18 13:53 Active Insert Urinary Catheter [OM.PC] Q24H Care 02/05/18 08:00 Ordered Intake and Output [RC] Q12H Care 02/05/18 13:53 Active Neurovascular Check [RC] Q2HR Care 02/05/18 13:53 Active Notify Provider Consults [RC] ASDIRECTED Care 02/05/18 13:57 Active Notify Provider Vital Signs [RC] ASDIRECTED Care 02/05/18 13:53 Active Overnight Pulse Oximetry [RC] Click to Edit Care 02/05/18 14:52 Active Oxygen Therapy [RC] ASDIRECTED Care 02/05/18 14:48 Active RT Incentive Spirometry [RC] ASDIRECTED Care 02/05/18 13:53 Active Turn, Cough, Deep Breathe [RC] .PRN Care 02/05/18 17:09 Active Urinary Catheter Assessment [RC] Q4H Care 02/05/18 08:00 Active Vital Signs [RC] Q1H Care 02/05/18 13:53 Active Consult to Physician [CONS] Routine Cons 02/05/18 13:52 Active PT Evaluation and Treatment [CONS] Routine Cons 02/05/18 13:53 Active HEMOGLOBIN/HEMATOCRIT,HH [HEME] DAILY Lab 02/07/18 06:00 Ordered HEMOGLOBIN/HEMATOCRIT,HH [HEME] DAILY Lab 02/08/18 06:00 Ordered Acetaminophen/oxyCODONE [Percocet 325-5 MG] Med 02/06/18 08:00 Active 1 - 2 tab PO Q4H PRN Alum Hydrox/Mag Hydrox/Simeth [Mag-Al Plus] Med 02/05/18 13:54 Active 30 ml PO Q4H PRN Aspirin Med 02/06/18 09:00 Active 325 mg PO BID Bisacodyl [Dulcolax] Med 02/05/18 13:54 Active 10 mg RECTAL DAILY PRN Carvedilol [Coreg] Med 02/05/18 21:00 Active 25 mg PO BID Celecoxib [CeleBREX] Med 02/06/18 09:00 Active 200 mg PO BID Docusate Sodium [Colace] Med 02/05/18 21:00 Active 100 mg PO BID FLUoxetine [PROzac] Med 02/06/18 09:00 Active 80 mg PO DAILY Famotidine [Pepcid] Med 02/06/18 09:00 Active 40 mg PO DAILY Furosemide [Lasix] Med 02/06/18 09:00 Active 20 - 40 mg PO DAILY Lactated Ringers [Ringers, Lactated] 1,000 ml Med 02/05/18 20:45 Active IV ASDIRECTED Morphine Med 02/06/18 08:00 Active 1 - 3 mg IVPUSH Q3H PRN Morphine PF [Morphine MECHANICAL ASSEMBLER 30 MG in 30 ML] Med 02/05/18 14:00 Active 30 mg IV ASDIRECTED Multivitamins w-Iron/Ca/FA/Min [Thera M Plus] Med 02/05/18 14:00 Active 1 tab PO ASDIRECTED Ondansetron [Zofran] Med 02/05/18 13:53 Active 4 mg IV Q6HR PRN Psyllium Husk/Aspartame [Metamucil Sugar Free] Med 02/05/18 13:57 Active 1 pkt PO ASDIRECTED PRN Ropivacaine [Naropin 0.2%] 49.25 ml Med 02/05/18 08:00 Active Ketorolac [Toradol] 30 mg EPINEPHrine [Adrenalin] 0.5 mg cloNIDine [Duraclon] 80 mcg Sodium Chloride 0.9% [Normal Saline] 48.45 ml INJECT ASDIRECTED Tranexamic Acid [Cyklokapron] 4,000 mg Med 02/05/18 08:00 Active Sodium Chloride 0.9% [Normal Saline] 100 ml IV ASDIRECTED atorvaSTATin [Lipitor] Med 02/06/18 09:00 Active 10 mg PO DAILY oxyCODONE ER [OxyCONTIN] Med 02/05/18 21:00 Active 10 mg PO Q12HR Ice Therapy [OM.PC] Routine Oth 02/05/18 13:53 Ordered Pulse Oximetry Continuous Monitoring [OM.PC] Routine Oth 02/05/18 14:51 Ordered Medication Orders Al Hydroxide/Mg Hydroxide (Mag-Al Plus) 30 ml PO Q4H PRN PRN Reason: indigestion Aspirin (Aspirin) 325 mg PO BID MANNY Atorvastatin Calcium (Lipitor) 10 mg PO DAILY [facility] Bisacodyl (Dulcolax) 10 mg RECTAL DAILY PRN PRN Reason: Constipation Carvedilol (Coreg) 25 mg PO BID [facility] Last Admin: 02/05/18 20:52 Dose: 25 mg Celecoxib (Celebrex) 200 mg PO BID [facility] Docusate Sodium (Colace) 100 mg PO BID [facility] Last Admin: 02/05/18 20:52 Dose: 100 mg Famotidine (Pepcid) 40 mg IVPUSH ONARRIVE [facility] Last Admin: 02/05/18 11:01 Dose: 40 mg Famotidine (Pepcid) 40 mg PO DAILY [facility] Fluoxetine HCl (Prozac) 80 mg PO DAILY [facility] Furosemide (Lasix) 20 - 40 mg PO DAILY [facility] Acetaminophen 1,000 mg/ Premix 100 mls @ 400 mls/hr IV ONARRIVE [facility] Last Infusion: 02/05/18 11:17 Dose: 400 mls/hr Admin: 02/05/18 11:02 Dose: 400 mls/hr Ropivacaine 49.25 ml/Ketorolac Tromethamine 30 mg/Epinephrine HCl 0.5 mg/ Clonidine HCl 80 mcg/ Sodium Chloride 100 mls @ 50 mls/sec INJECT ASDIRECTED [facility] Tranexamic Acid 4,000 mg/ (Sodium Chloride) 140 mls @ 600 mls/hr IV ASDIRECTED [facility] Lactated Ringer's (Ringers, Lactated) 1,000 mls @ 20 mls/hr IV ASDIRECTED [facility] Last Admin: 02/05/18 21:00 Dose: 20 mls/hr Ketorolac Tromethamine (Toradol) 30 mg IVPUSH ONARRIVE [facility] Last Admin: 02/05/18 11:01 Dose: 30 mg Morphine Sulfate (Morphine Bsa/Aml Compliance Officer 30 Mg In 30 Ml) 30 mg IV ASDIRECTED [facility]; Protocol Last Admin: 02/05/18 14:15 Dose: 30 mg Morphine Sulfate (Morphine) 1 - 3 mg IVPUSH Q3H PRN PRN Reason: Pain Multivitamins/Minerals (Thera M Plus) 1 tab PO ASDIRECTED [facility] Ondansetron HCl (Zofran) 4 mg IV Q6HR PRN PRN Reason: NAUSEA/VOMITING Oxycodone HCl (Oxycontin) 10 mg PO ONARRIVE [facility] Last Admin: 02/05/18 11:01 Dose: 10 mg Oxycodone HCl (Oxycontin) 10 mg PO Q12HR [facility] Last Admin: 02/05/18 20:56 Dose: 10 mg Oxycodone/Acetaminophen (Percocet 325-5 Mg) 1 - 2 tab PO Q4H PRN PRN Reason: Pain Psyllium Husk (Metamucil Sugar Free) 1 pkt PO ASDIRECTED PRN PRN Reason: Constipation Scopolamine (Transderm-Scop) 1.5 mg TRDERM ONARRIVE [facility] Last Admin: 02/05/18 11:00 Dose: 1.5 mg - Assessment Assessment (Free Text/Narrative):: 57 yr old female POD #1 left total knee arthroplasty. NAEO, appropriate. Bradycardic at times to 50s, otherwise hemodynamically stable. UOP appropriate. Has not yet been evaluated by PT. Notable PMH of diastolic heart failure. - Plan Plan (Free Text/Narrative):: Encourage out of bed and ambulation PT/therapy evaluation today Regular diet as tolerated Will work to wean off IV prns Encourage use of IS Anticipate removing cao Appreciate assistance of Hospitalist consult Will discuss discharge timing/coordination with Dr. Gaytan <Maria Esther Gaytan - Last Filed: 02/06/18 14:16> - Patient Data Vitals - Most Recent: Last Vital Signs Temp 98.2 F 02/06/18 12:00 Pulse 63 02/06/18 08:51 Resp 16 02/06/18 12:00 BP 111/56 L 02/06/18 12:00 Pulse Ox 95 02/06/18 12:00 I&O - Last 24 Hours: Intake & Output 02/05/18 02/06/18 02/06/18 22:59 06:59 14:59 Intake Total 3550 1140 Output Total 450 500 Balance 3100 640 Lab Results Last 24 Hrs: Laboratory Results - last 24 hr 02/06/18 02/06/18 Range/Units 05:03 05:03 Hgb 10.6 L (12.0-16.0) g/dL Hct 33.4 L (36.0-46.0) % Sodium 140 (136-145) mmol/L Potassium 4.1 (3.5-5.1) mmol/L Chloride 106 (98-107) mmol/L Carbon Dioxide 29.6 (21.0-32.0) mmol/L BUN 14 (7.0-18.0) mg/dL Creatinine 0.8 (0.6-1.0) mg/dL Est Cr Clr Drug Dosing 65.38 mL/min Estimated GFR (MDRD) > 60.0 ml/min Glucose 101 (74-106) mg/dL Calcium 8.2 L (8.5-10.1) mg/dL Med Orders - Current: Current Medications Hydrocodone Bitart/Acetaminophen ([place] 325-5 Mg) 1 - 2 tab PO Q4H PRN PRN Reason: Pain Last Admin: 02/06/18 12:22 Dose: 2 tab Al Hydroxide/Mg Hydroxide (Mag-Al Plus) 30 ml PO Q4H PRN PRN Reason: indigestion Aspirin (Aspirin) 325 mg PO BID MANNY Last Admin: 02/06/18 08:50 Dose: 325 mg Atorvastatin Calcium (Lipitor) 10 mg PO DAILY [facility] Last Admin: 02/06/18 08:49 Dose: 10 mg Bisacodyl (Dulcolax) 10 mg RECTAL DAILY PRN PRN Reason: Constipation Carvedilol (Coreg) 25 mg PO BID [facility] Last Admin: 02/06/18 08:51 Dose: 25 mg Celecoxib (Celebrex) 200 mg PO BID [facility] Last Admin: 02/06/18 08:50 Dose: 200 mg Docusate Sodium (Colace) 100 mg PO BID [facility] Last Admin: 02/06/18 08:50 Dose: 100 mg Famotidine (Pepcid) 40 mg IVPUSH ONARRIVE [facility] Last Admin: 02/05/18 11:01 Dose: 40 mg Famotidine (Pepcid) 40 mg PO DAILY [facility] Last Admin: 02/06/18 08:49 Dose: 40 mg Fluoxetine HCl (Prozac) 40 mg PO BID [facility] Furosemide (Lasix) 20 - 40 mg PO DAILY [facility] Last Admin: 02/06/18 08:50 Dose: 40 mg Acetaminophen 1,000 mg/ Premix 100 mls @ 400 mls/hr IV ONARRIVE [facility] Last Infusion: 02/05/18 11:17 Dose: Infused Ropivacaine 49.25 ml/Ketorolac Tromethamine 30 mg/Epinephrine HCl 0.5 mg/ Clonidine HCl 80 mcg/ Sodium Chloride 100 mls @ 50 mls/sec INJECT ASDIRECTED [facility] Tranexamic Acid 4,000 mg/ (Sodium Chloride) 140 mls @ 600 mls/hr IV ASDIRECTED [facility] Lactated Ringer's (Ringers, Lactated) 1,000 mls @ 20 mls/hr IV ASDIRECTED [facility] Last Admin: 02/05/18 21:00 Dose: 20 mls/hr Ketorolac Tromethamine (Toradol) 30 mg IVPUSH ONARRIVE [facility] Last Admin: 02/05/18 11:01 Dose: 30 mg Morphine Sulfate (Morphine) 1 - 3 mg IVPUSH Q3H PRN PRN Reason: Pain Last Admin: 02/06/18 09:56 Dose: 3 mg Multivitamins/Minerals (Thera M Plus) 1 tab PO ASDIRECTED [facility] Ondansetron HCl (Zofran) 4 mg IV Q6HR PRN PRN Reason: NAUSEA/VOMITING Oxycodone HCl (Oxycontin) 10 mg PO ONARRIVE [facility] Last Admin: 02/05/18 11:01 Dose: 10 mg Psyllium Husk (Metamucil Sugar Free) 1 pkt PO ASDIRECTED PRN PRN Reason: Constipation Scopolamine (Transderm-Scop) 1.5 mg TRDERM ONARRIVE [facility] Last Admin: 02/05/18 11:00 Dose: 1.5 mg Sodium Chloride (Saline Flush) 10 ml FLUSH ASDIRECTED PRN PRN Reason: Keep Vein Open Sodium Chloride (Saline Flush) 2.5 ml FLUSH ASDIRECTED PRN PRN Reason: Keep Vein Open Discontinued Medications Etomidate (Amidate) Confirm Administered Dose 40 mg IVPUSH .STK-MED ONE Stop: 02/05/18 11:26 Fentanyl (Sublimaze) Confirm Administered Dose 100 mcg .ROUTE .STK-MED ONE Stop: 02/05/18 11:25 Fentanyl (Sublimaze) Confirm Administered Dose 250 mcg .ROUTE .STK-MED ONE Stop: 02/05/18 11:25 Fluoxetine HCl (Prozac) 80 mg PO DAILY [facility] Last Admin: 02/06/18 08:49 Dose: 40 mg Clindamycin Phosphate 900 mg/ (Premix) 50 mls @ 100 mls/hr IV ONCALL [facility] Last Admin: 02/05/18 11:29 Dose: 100 mls/hr Lactated Ringer's (Ringers, Lactated) 1,000 mls @ 100 mls/hr IV ASDIRECTED [facility] Last Admin: 02/05/18 10:42 Dose: 100 mls/hr Acetaminophen 1,000 mg/ Premix 100 mls @ 400 mls/hr IV Q6H [facility] Stop: 02/06/18 05:14 Last Admin: 02/06/18 04:55 Dose: 400 mls/hr Acetaminophen (Ofirmev) Confirm Administered Dose 100 mls @ as directed IV .STK- MED ONE Stop: 02/05/18 15:37 Clindamycin Phosphate 900 mg/ (Premix) 50 mls @ 100 mls/hr IV Q8H [facility] Stop: 02/06/18 07:29 Last Admin: 02/06/18 06:13 Dose: 100 mls/hr Ketorolac Tromethamine (Toradol) 30 mg IVPUSH Q6H [facility] Stop: 02/06/18 05:00 Last Admin: 02/06/18 04:55 Dose: 30 mg Lidocaine (Xylocaine-Mpf 2%) Confirm Administered Dose 10 ml .ROUTE .STK-MED ONE Stop: 02/05/18 11:25 Midazolam HCl (Versed 1 Mg/Ml) Confirm Administered Dose 2 mg .ROUTE .STK-MED ONE Stop: 02/05/18 11:25 Morphine Sulfate (Morphine Bsa/Aml Compliance Officer 30 Mg In 30 Ml) 30 mg IV ASDIRECTED [facility]; Protocol Last Admin: 02/05/18 14:15 Dose: 30 mg Ondansetron HCl (Zofran) Confirm Administered Dose 4 mg .ROUTE .STK-MED ONE Stop: 02/05/18 11:26 Oxycodone HCl (Oxycodone) 5 - 10 mg PO Q4H PRN PRN Reason: Pain Stop: 02/06/18 08:00 Last Admin: 02/06/18 06:13 Dose: 5 mg Oxycodone HCl (Oxycontin) 10 mg PO Q12HR MANNY Last Admin: 02/05/18 20:56 Dose: 10 mg Oxycodone/Acetaminophen (Percocet 325-5 Mg) 1 - 2 tab PO Q4H PRN PRN Reason: Pain Propofol (Diprivan 20 Ml) Confirm Administered Dose 400 mg .ROUTE .STK-MED ONE Stop: 02/05/18 11:25 Tranexamic Acid (Cyklokapron) Confirm Administered Dose 4,000 mg .ROUTE .STK- MED ONE Stop: 02/05/18 07:23 - My Orders Last 24 Hours: Active Orders 24 hr Category Date Time Status Patient Status [ADT] Routine ADT 02/05/18 17:01 Active Activity as Tolerated [RC] .Routine Care 02/05/18 13:53 Active CPAP Adult [RT BiPAP/CPAP] [RC] ASDIRECTED Care 02/05/18 14:53 Active Dressing Change [Wound Care] [RC] Q12H Care 02/05/18 13:53 Active Intake and Output [RC] Q12H Care 02/05/18 13:53 Active Neurovascular Check [RC] Q2HR Care 02/05/18 13:53 Active Notify Provider Consults [RC] ASDIRECTED Care 02/05/18 13:57 Active Notify Provider Vital Signs [RC] ASDIRECTED Care 02/05/18 13:53 Active Overnight Pulse Oximetry [RC] Click to Edit Care 02/05/18 14:52 Active Oxygen Therapy [RC] ASDIRECTED Care 02/05/18 14:48 Active RT Incentive Spirometry [RC] ASDIRECTED Care 02/05/18 13:53 Active Turn, Cough, Deep Breathe [RC] .PRN Care 02/05/18 17:09 Active Vital Signs [RC] Q4H Care 02/05/18 13:53 Active Consult to Physician [CONS] Routine Cons 02/05/18 13:52 Active PT Evaluation and Treatment [CONS] Routine Cons 02/05/18 13:53 Active HEMOGLOBIN/HEMATOCRIT,HH [HEME] DAILY Lab 02/07/18 06:00 Ordered HEMOGLOBIN/HEMATOCRIT,HH [HEME] DAILY Lab 02/08/18 06:00 Ordered Acetaminophen/HYDROcodone [[place] 325-5 MG] Med 02/06/18 08:33 Active 1 - 2 tab PO Q4H PRN Alum Hydrox/Mag Hydrox/Simeth [Mag-Al Plus] Med 02/05/18 13:54 Active 30 ml PO Q4H PRN Aspirin Med 02/06/18 09:00 Active 325 mg PO BID Bisacodyl [Dulcolax] Med 02/05/18 13:54 Active 10 mg RECTAL DAILY PRN Carvedilol [Coreg] Med 02/05/18 21:00 Active 25 mg PO BID Celecoxib [CeleBREX] Med 02/06/18 09:00 Active 200 mg PO BID Docusate Sodium [Colace] Med 02/05/18 21:00 Active 100 mg PO BID FLUoxetine [PROzac] Med 02/06/18 21:00 Active 40 mg PO BID Famotidine [Pepcid] Med 02/06/18 09:00 Active 40 mg PO DAILY Furosemide [Lasix] Med 02/06/18 09:00 Active 20 - 40 mg PO DAILY Lactated Ringers [Ringers, Lactated] 1,000 ml Med 02/05/18 20:45 Active IV ASDIRECTED Morphine Med 02/06/18 08:00 Active 1 - 3 mg IVPUSH Q3H PRN Multivitamins w-Iron/Ca/FA/Min [Thera M Plus] Med 02/05/18 14:00 Active 1 tab PO ASDIRECTED Ondansetron [Zofran] Med 02/05/18 13:53 Active 4 mg IV Q6HR PRN Psyllium Husk/Aspartame [Metamucil Sugar Free] Med 02/05/18 13:57 Active 1 pkt PO ASDIRECTED PRN Sodium Chloride 0.9% [Saline Flush] Med 02/06/18 08:33 Active 10 ml FLUSH ASDIRECTED PRN Sodium Chloride 0.9% [Saline Flush] Med 02/06/18 08:33 Active 2.5 ml FLUSH ASDIRECTED PRN atorvaSTATin [Lipitor] Med 02/06/18 09:00 Active 10 mg PO DAILY Convert IV to Saline Lock [OM.PC] Routine Oth 02/06/18 08:33 Ordered Ice Therapy [OM.PC] Routine Oth 02/05/18 13:53 Ordered Pulse Oximetry Continuous Monitoring [OM.PC] Routine Ot 02/05/18 14:51 Ordered Medication Orders Hydrocodone Bitart/Acetaminophen ([place] 325-5 Mg) 1 - 2 tab PO Q4H PRN PRN Reason: Pain Last Admin: 02/06/18 12:22 Dose: 2 tab Admin: 02/06/18 08:50 Dose: 2 tab Al Hydroxide/Mg Hydroxide (Mag-Al Plus) 30 ml PO Q4H PRN PRN Reason: indigestion Aspirin (Aspirin) 325 mg PO BID [facility] Last Admin: 02/06/18 08:50 Dose: 325 mg Atorvastatin Calcium (Lipitor) 10 mg PO DAILY [facility] Last Admin: 02/06/18 08:49 Dose: 10 mg Bisacodyl (Dulcolax) 10 mg RECTAL DAILY PRN PRN Reason: Constipation Carvedilol (Coreg) 25 mg PO BID [facility] Last Admin: 02/06/18 08:51 Dose: 25 mg Admin: 02/05/18 20:52 Dose: 25 mg Celecoxib (Celebrex) 200 mg PO BID [facility] Last Admin: 02/06/18 08:50 Dose: 200 mg Docusate Sodium (Colace) 100 mg PO BID [facility] Last Admin: 02/06/18 08:50 Dose: 100 mg Admin: 02/05/18 20:52 Dose: 100 mg Famotidine (Pepcid) 40 mg IVPUSH ONARRIVE [facility] Last Admin: 02/05/18 11:01 Dose: 40 mg Famotidine (Pepcid) 40 mg PO DAILY [facility] Last Admin: 02/06/18 08:49 Dose: 40 mg Fluoxetine HCl (Prozac) 40 mg PO BID [facility] Furosemide (Lasix) 20 - 40 mg PO DAILY [facility] Last Admin: 02/06/18 08:50 Dose: 40 mg Acetaminophen 1,000 mg/ Premix 100 mls @ 400 mls/hr IV [facility] Last Infusion: 02/05/18 11:17 Dose: 400 mls/hr Admin: 02/05/18 11:02 Dose: 400 mls/hr Ropivacaine 49.25 ml/Ketorolac Tromethamine 30 mg/Epinephrine HCl 0.5 mg/ Clonidine HCl 80 mcg/ Sodium Chloride 100 mls @ 50 mls/sec INJECT ASDIRECTED [facility] Tranexamic Acid 4,000 mg/ (Sodium Chloride) 140 mls @ 600 mls/hr IV [facility] Lactated Ringer's (Ringers, Lactated) 1,000 mls @ 20 mls/hr IV ASD[facility]RECTED [facility] Last Admin: 02/05/18 21:00 Dose: 20 mls/hr Ketorolac Tromethamine (Toradol) 30 mg IVPUSH [facility] Last Admin: 02/05/18 11:01 Dose: 30 mg Morphine Sulfate (Morphine) 1 - 3 mg IVPUSH Q3H PRN PRN Reason: Pain Last Admin: 02/06/18 09:56 Dose: 3 mg Multivitamins/Minerals (Thera M Plus) 1 tab PO ASDIRECTED [facility] Ondansetron HCl (Zofran) 4 mg IV Q6HR PRN PRN Reason: NAUSEA/VOMITING Oxycodone HCl (Oxycontin) 10 mg PO ON[facility]IVE [facility] Last Admin: 02/05/18 11:01 Dose: 10 mg Psyllium Husk (Metamucil Sugar Free) 1 pkt PO ASDIRECTED PRN PRN Reason: Constipation Scopolamine (Transderm-Scop) 1.5 mg TRDERM ON[facility] Last Admin: 02/05/18 11:00 Dose: 1.5 mg Sodium Chloride (Saline Flush) 10 ml FLUSH ASDIRECTED PRN PRN Reason: Keep Vein Open Sodium Chloride (Saline Flush) 2.5 ml FLUSH ASDIRECTED PRN PRN Reason: Keep Vein Open - Plan Plan (Free Text/Narrative):: Patient seen and examined. Agree with above note. [email or web address]
[2018-02-06] MEDS ORDERED: Sodium Chloride 0.9% 10 ML Syringe FLUSH PRN (08:33)
[2018-02-06] MEDS ORDERED: Sodium Chloride 0.9% 2.5 ML Syringe FLUSH PRN (08:33)
--- NOTE | 2018-02-06 08:43 | PCM.SURGPN ---
<Gracie Escalanteah R - Last Filed: 02/06/18 08:36> - General Info Date of Service: 02/06/18 Date of Surgery/Procedure: 02/05/18 POD#: 1 Functional Status: Reports: Tolerating Diet. Denies: Pain Controlled - Review of Systems General: Reports: No Symptoms Pulmonary: Reports: No Symptoms, Shortness of Breath Cardiovascular: Reports: No Symptoms. Denies: Chest Pain, Lightheadedness Musculoskeletal: Reports: Leg Pain Systems Review Comment:: pt up to chair for breakfast tolerating PO intake well feels pain is not controlled, narcotics have been minimized d/t respiratory depression, received oxycontin 10mg last night plus morphine [employer] c/o SOB but not unable to catch breath, feels like she is just having trouble to get a breath in has not used IS yet - states no instruction was given - Patient Data Vitals - Most Recent: Last Vital Signs Temp 97.6 F 02/06/18 04:00 Pulse 67 02/06/18 07:35 Resp 15 02/06/18 07:35 BP 149/75 H 02/06/18 07:35 Pulse Ox 95 02/06/18 07:00 Weight - Most Recent: 99.79 kg I&O - Last 24 Hours: Intake & Output 02/05/18 02/06/18 02/06/18 22:59 06:59 14:59 Intake Total 3550 1140 Output Total 450 500 Balance 3100 640 Lab Results Last 24 Hrs: Laboratory Results - last 24 hr 02/05/18 02/06/18 02/06/18 Range/Units 10:55 05:03 05:03 Hgb 10.6 L (12.0-16.0) g/dL Hct 33.4 L (36.0-46.0) % Sodium 140 (136-145) mmol/L Potassium 4.1 (3.5-5.1) mmol/L Chloride 106 (98-107) mmol/L Carbon Dioxide 29.6 (21.0-32.0) mmol/L BUN 14 (7.0-18.0) mg/dL Creatinine 0.8 (0.6-1.0) mg/dL Est Cr Clr Drug Dosing 65.38 mL/min Estimated GFR (MDRD) > 60.0 ml/min Glucose 101 (74-106) mg/dL Calcium 8.2 L (8.5-10.1) mg/dL Blood Type AB POSITIVE Antibody Screen NEGATIVE Med Orders - Current: Current Medications Hydrocodone Bitart/Acetaminophen ([place] 325-5 Mg) 1 - 2 tab PO Q4H PRN PRN Reason: Pain Al Hydroxide/Mg Hydroxide (Mag-Al Plus) 30 ml PO Q4H PRN PRN Reason: indigestion Aspirin (Aspirin) 325 mg PO BID [facility] Atorvastatin Calcium (Lipitor) 10 mg PO DAILY [facility] Bisacodyl (Dulcolax) 10 mg RECTAL DAILY PRN PRN Reason: Constipation Carvedilol (Coreg) 25 mg PO BID [facility] Last Admin: 02/05/18 20:52 Dose: 25 mg Celecoxib (Celebrex) 200 mg PO BID [facility] Docusate Sodium (Colace) 100 mg PO BID [facility] Last Admin: 02/05/18 20:52 Dose: 100 mg Famotidine (Pepcid) 40 mg IVPUSH ONARRIVE [facility] Last Admin: 02/05/18 11:01 Dose: 40 mg Famotidine (Pepcid) 40 mg PO DAILY [facility] Fluoxetine HCl (Prozac) 80 mg PO DAILY [facility] Furosemide (Lasix) 20 - 40 mg PO DAILY [facility] Acetaminophen 1,000 mg/ Premix 100 mls @ 400 mls/hr IV ONARRIVE [facility] Last Infusion: 02/05/18 11:17 Dose: Infused Ropivacaine 49.25 ml/Ketorolac Tromethamine 30 mg/Epinephrine HCl 0.5 mg/ Clonidine HCl 80 mcg/ Sodium Chloride 100 mls @ 50 mls/sec INJECT ASDIRECTED [facility] Tranexamic Acid 4,000 mg/ (Sodium Chloride) 140 mls @ 600 mls/hr IV ASDIRECTED [facility] Lactated Ringer's (Ringers, Lactated) 1,000 mls @ 20 mls/hr IV ASDIRECTED [facility] Last Admin: 02/05/18 21:00 Dose: 20 mls/hr Ketorolac Tromethamine (Toradol) 30 mg IVPUSH ONARRIVE [facility] Last Admin: 02/05/18 11:01 Dose: 30 mg Morphine Sulfate (Morphine) 1 - 3 mg IVPUSH Q3H PRN PRN Reason: Pain Multivitamins/Minerals (Thera M Plus) 1 tab PO ASDIRECTED [facility] Ondansetron HCl (Zofran) 4 mg IV Q6HR PRN PRN Reason: NAUSEA/VOMITING Oxycodone HCl (Oxycontin) 10 mg PO ONARRIVE [facility] Last Admin: 02/05/18 11:01 Dose: 10 mg Psyllium Husk (Metamucil Sugar Free) 1 pkt PO ASDIRECTED PRN PRN Reason: Constipation Scopolamine (Transderm-Scop) 1.5 mg DER ONARRIVE [facility] Last Admin: 02/05/18 11:00 Dose: 1.5 mg Sodium Chloride (Saline Flush) 10 ml FLUSH ASDIRECTED PRN PRN Reason: Keep Vein Open Sodium Chloride (Saline Flush) 2.5 ml FLUSH ASDIRECTED PRN PRN Reason: Keep Vein Open Discontinued Medications Etomidate (Amidate) Confirm Administered Dose 40 mg IVPUSH .STK-MED ONE Stop: 02/05/18 11:26 Fentanyl (Sublimaze) Confirm Administered Dose 100 mcg .ROUTE .STK-MED ONE Stop: 02/05/18 11:25 Fentanyl (Sublimaze) Confirm Administered Dose 250 mcg .ROUTE .STK-MED ONE Stop: 02/05/18 11:25 Clindamycin Phosphate 900 mg/ (Premix) 50 mls @ 100 mls/hr IV ONCALL [facility] Last Admin: 02/05/18 11:29 Dose: 100 mls/hr Lactated Ringer's (Ringers, Lactated) 1,000 mls @ 100 mls/hr IV ASDIRECTED [facility] Last Admin: 02/05/18 10:42 Dose: 100 mls/hr Acetaminophen 1,000 mg/ Premix 100 mls @ 400 mls/hr IV Q6H [facility] Stop: 02/06/18 05:14 Last Admin: 02/06/18 04:55 Dose: 400 mls/hr Acetaminophen (Ofirmev) Confirm Administered Dose 100 mls @ as directed IV .STK- MED ONE Stop: 02/05/18 15:37 Clindamycin Phosphate 900 mg/ (Premix) 50 mls @ 100 mls/hr IV Q8H [facility] Stop: 02/06/18 07:29 Last Admin: 02/06/18 06:13 Dose: 100 mls/hr Ketorolac Tromethamine (Toradol) 30 mg IVPUSH Q6H [facility] Stop: 02/06/18 05:00 Last Admin: 02/06/18 04:55 Dose: 30 mg Lidocaine (Xylocaine-Mpf 2%) Confirm Administered Dose 10 ml .ROUTE .STK-MED ONE Stop: 02/05/18 11:25 Midazolam HCl (Versed 1 Mg/Ml) Confirm Administered Dose 2 mg .ROUTE .STK-MED ONE Stop: 02/05/18 11:25 Morphine Sulfate (Morphine Child Study Team Director 30 Mg In 30 Ml) 30 mg IV ASDIRECTED [facility]; Protocol Last Admin: 02/05/18 14:15 Dose: 30 mg Ondansetron HCl (Zofran) Confirm Administered Dose 4 mg .ROUTE .STK-MED ONE Stop: 02/05/18 11:26 Oxycodone HCl (Oxycodone) 5 - 10 mg PO Q4H PRN PRN Reason: Pain Stop: 02/06/18 08:00 Last Admin: 02/06/18 06:13 Dose: 5 mg Oxycodone HCl (Oxycontin) 10 mg PO Q12HR [facility] Last Admin: 02/05/18 20:56 Dose: 10 mg Oxycodone/Acetaminophen (Percocet 325-5 Mg) 1 - 2 tab PO Q4H PRN PRN Reason: Pain Propofol (Diprivan 20 Ml) Confirm Administered Dose 400 mg .ROUTE .STK-MED ONE Stop: 02/05/18 11:25 Tranexamic Acid (Cyklokapron) Confirm Administered Dose 4,000 mg .ROUTE .STK- MED ONE Stop: 02/05/18 07:23 - Exam Wound/Incisions: Dressing Dry and Intact. No: Drainage, Erythema General: Alert, Oriented Cardiovascular: Regular Rate, Regular Rhythm Extremities: Other (exam LLE - at/ehl/gastroc 5/5, dp2+, sensation intact distally) Physical Findings Comment:: vss, afeb (pulse variable in 50s, bp 100s-140s/50s-90s) uo 1200+mL hgb 10.6 - Problem List Review Problem List Initiated/Reviewed/Updated: Yes - My Orders Last 24 Hours: Active Orders 24 hr Category Date Time Status Patient Status [ADT] Routine ADT 02/05/18 17:01 Active Activity as Tolerated [RC] .Routine Care 02/05/18 13:53 Active CPAP Adult [RT BiPAP/CPAP] [RC] ASDIRECTED Care 02/05/18 14:53 Active Dressing Change [Wound Care] [RC] Q12H Care 02/05/18 13:53 Active Insert Urinary Catheter [OM.PC] Q24H Care 02/05/18 08:00 Ordered Intake and Output [RC] Q12H Care 02/05/18 13:53 Active Neurovascular Check [RC] Q2HR Care 02/05/18 13:53 Active Notify Provider Consults [RC] ASDIRECTED Care 02/05/18 13:57 Active Notify Provider Vital Signs [RC] ASDIRECTED Care 02/05/18 13:53 Active Overnight Pulse Oximetry [RC] Click to Edit Care 02/05/18 14:52 Active Oxygen Therapy [RC] ASDIRECTED Care 02/05/18 14:48 Active RT Incentive Spirometry [RC] ASDIRECTED Care 02/05/18 13:53 Active Turn, Cough, Deep Breathe [RC] .PRN Care 02/05/18 17:09 Active Urinary Catheter Assessment [RC] Q4H Care 02/05/18 08:00 Active Urinary Catheter Removal [RC] Per Unit Routine Care 02/06/18 08:33 Ordered Vital Signs [RC] Q1H Care 02/05/18 13:53 Active Consult to Physician [CONS] Routine Cons 02/05/18 13:52 Active PT Evaluation and Treatment [CONS] Routine Cons 02/05/18 13:53 Active HEMOGLOBIN/HEMATOCRIT,HH [HEME] DAILY Lab 02/07/18 06:00 Ordered HEMOGLOBIN/HEMATOCRIT,HH [HEME] DAILY Lab 02/08/18 06:00 Ordered Acetaminophen/HYDROcodone [[place] 325-5 MG] Med 02/06/18 08:33 Ordered 1 - 2 tab PO Q4H PRN Alum Hydrox/Mag Hydrox/Simeth [Mag-Al Plus] Med 02/05/18 13:54 Active 30 ml PO Q4H PRN Aspirin Med 02/06/18 09:00 Active 325 mg PO BID Bisacodyl [Dulcolax] Med 02/05/18 13:54 Active 10 mg RECTAL DAILY PRN Carvedilol [Coreg] Med 02/05/18 21:00 Active 25 mg PO BID Celecoxib [CeleBREX] Med 02/06/18 09:00 Active 200 mg PO BID Docusate Sodium [Colace] Med 02/05/18 21:00 Active 100 mg PO BID FLUoxetine [PROzac] Med 02/06/18 09:00 Active 80 mg PO DAILY Famotidine [Pepcid] Med 02/06/18 09:00 Active 40 mg PO DAILY Furosemide [Lasix] Med 02/06/18 09:00 Active 20 - 40 mg PO DAILY Lactated Ringers [Ringers, Lactated] 1,000 ml Med 02/05/18 20:45 Active IV ASDIRECTED Morphine Med 02/06/18 08:00 Active 1 - 3 mg IVPUSH Q3H PRN Multivitamins w-Iron/Ca/FA/Min [Thera M Plus] Med 02/05/18 14:00 Active 1 tab PO ASDIRECTED Ondansetron [Zofran] Med 02/05/18 13:53 Active 4 mg IV Q6HR PRN Psyllium Husk/Aspartame [Metamucil Sugar Free] Med 02/05/18 13:57 Active 1 pkt PO ASDIRECTED PRN Ropivacaine [Naropin 0.2%] 49.25 ml Med 02/05/18 08:00 Active Ketorolac [Toradol] 30 mg EPINEPHrine [Adrenalin] 0.5 mg cloNIDine [Duraclon] 80 mcg Sodium Chloride 0.9% [Normal Saline] 48.45 ml INJECT ASDIRECTED Sodium Chloride 0.9% [Saline Flush] Med 02/06/18 08:33 Ordered 10 ml FLUSH ASDIRECTED PRN Sodium Chloride 0.9% [Saline Flush] Med 02/06/18 08:33 Ordered 2.5 ml FLUSH ASDIRECTED PRN Tranexamic Acid [Cyklokapron] 4,000 mg Med 02/05/18 08:00 Active Sodium Chloride 0.9% [Normal Saline] 100 ml IV ASDIRECTED atorvaSTATin [Lipitor] Med 02/06/18 09:00 Active 10 mg PO DAILY Convert IV to Saline Lock [OM.PC] Routine Oth 02/06/18 08:33 Ordered Ice Therapy [OM.PC] Routine Oth 02/05/18 13:53 Ordered Pulse Oximetry Continuous Monitoring [OM.PC] Routine Oth 02/05/18 14:51 Ordered Medication Orders Hydrocodone Bitart/Acetaminophen ([place] 325-5 Mg) 1 - 2 tab PO Q4H PRN PRN Reason: Pain Al Hydroxide/Mg Hydroxide (Mag-Al Plus) 30 ml PO Q4H PRN PRN Reason: indigestion Aspirin (Aspirin) 325 mg PO BID [facility] Atorvastatin Calcium (Lipitor) 10 mg PO DAILY [facility] Bisacodyl (Dulcolax) 10 mg RECTAL DAILY PRN PRN Reason: Constipation Carvedilol (Coreg) 25 mg PO BID [facility] Last Admin: 02/05/18 20:52 Dose: 25 mg Celecoxib (Celebrex) 200 mg PO BID [facility] Docusate Sodium (Colace) 100 mg PO BID [facility] Last Admin: 02/05/18 20:52 Dose: 100 mg Famotidine (Pepcid) 40 mg IVPUSH ONARRIVE [facility] Last Admin: 02/05/18 11:01 Dose: 40 mg Famotidine (Pepcid) 40 mg PO DAILY [facility] Fluoxetine HCl (Prozac) 80 mg PO DAILY [facility] Furosemide (Lasix) 20 - 40 mg PO DAILY [facility] Acetaminophen 1,000 mg/ Premix 100 mls @ 400 mls/hr IV ONARRIVE [facility] Last Infusion: 02/05/18 11:17 Dose: 400 mls/hr Admin: 02/05/18 11:02 Dose: 400 mls/hr Ropivacaine 49.25 ml/Ketorolac Tromethamine 30 mg/Epinephrine HCl 0.5 mg/ Clonidine HCl 80 mcg/ Sodium Chloride 100 mls @ 50 mls/sec INJECT ASDIRECTED [facility] Tranexamic Acid 4,000 mg/ (Sodium Chloride) 140 mls @ 600 mls/hr IV ASDIRECTED [facility] Lactated Ringer's (Ringers, Lactated) 1,000 mls @ 20 mls/hr IV ASDIRECTED [facility] Last Admin: 02/05/18 21:00 Dose: 20 mls/hr Ketorolac Tromethamine (Toradol) 30 mg IVPUSH ONARRIVE [facility] Last Admin: 02/05/18 11:01 Dose: 30 mg Morphine Sulfate (Morphine) 1 - 3 mg IVPUSH Q3H PRN PRN Reason: Pain Multivitamins/Minerals (Thera M Plus) 1 tab PO ASDIRECTED [facility] Ondansetron HCl (Zofran) 4 mg IV Q6HR PRN PRN Reason: NAUSEA/VOMITING Oxycodone HCl (Oxycontin) 10 mg PO ONARRIVE [facility] Last Admin: 02/05/18 11:01 Dose: 10 mg Psyllium Husk (Metamucil Sugar Free) 1 pkt PO ASDIRECTED PRN PRN Reason: Constipation Scopolamine (Transderm-Scop) 1.5 mg TRDERM ONARRIVE [facility] Last Admin: 02/05/18 11:00 Dose: 1.5 mg Sodium Chloride (Saline Flush) 10 ml FLUSH ASDIRECTED PRN PRN Reason: Keep Vein Open Sodium Chloride (Saline Flush) 2.5 ml FLUSH ASDIRECTED PRN PRN Reason: Keep Vein Open - Assessment Assessment (Free Text/Narrative):: POD#1 L TKA acute posthemorrhagic anemia - Plan Plan (Free Text/Narrative):: DC oxycontin, oxycodone was dc'ed yesterday DC [employer], morphine IV available for breakthrough pain DC cao saline lock IV PT today ASA 325mg PO BID as DVT prophylaxis instructed on IS use, encouraged 10-15 times per hour while awake likely discharge home tomorrow d/t narcotic sensitivity, therapy, and adequate pain control appreciate hospitalist assistance for medical comorbidities <Maria Esther Gaytan R - Last Filed: 02/06/18 14:12> - Patient Data Vitals - Most Recent: Last Vital Signs Temp 98.2 F 02/06/18 12:00 Pulse 63 02/06/18 08:51 Resp 16 02/06/18 12:00 BP 111/56 L 02/06/18 12:00 Pulse Ox 95 02/06/18 12:00 I&O - Last 24 Hours: Intake & Output 02/05/18 02/06/18 02/06/18 22:59 06:59 14:59 Intake Total 3550 1140 Output Total 450 500 Balance 3100 640 Lab Results Last 24 Hrs: Laboratory Results - last 24 hr 02/06/18 02/06/18 Range/Units 05:03 05:03 Hgb 10.6 L (12.0-16.0) g/dL Hct 33.4 L (36.0-46.0) % Sodium 140 (136-145) mmol/L Potassium 4.1 (3.5-5.1) mmol/L Chloride 106 (98-107) mmol/L Carbon Dioxide 29.6 (21.0-32.0) mmol/L BUN 14 (7.0-18.0) mg/dL Creatinine 0.8 (0.6-1.0) mg/dL Est Cr Clr Drug Dosing 65.38 mL/min Estimated GFR (MDRD) > 60.0 ml/min Glucose 101 (74-106) mg/dL Calcium 8.2 L (8.5-10.1) mg/dL Med Orders - Current: Current Medications Hydrocodone Bitart/Acetaminophen ([place] 325-5 Mg) 1 - 2 tab PO Q4H PRN PRN Reason: Pain Last Admin: 02/06/18 12:22 Dose: 2 tab Al Hydroxide/Mg Hydroxide (Mag-Al Plus) 30 ml PO Q4H PRN PRN Reason: indigestion Aspirin (Aspirin) 325 mg PO BID [facility] Last Admin: 02/06/18 08:50 Dose: 325 mg Atorvastatin Calcium (Lipitor) 10 mg PO DAILY [facility] Last Admin: 02/06/18 08:49 Dose: 10 mg Bisacodyl (Dulcolax) 10 mg RECTAL DAILY PRN PRN Reason: Constipation Carvedilol (Coreg) 25 mg PO BID [facility] Last Admin: 02/06/18 08:51 Dose: 25 mg Celecoxib (Celebrex) 200 mg PO BID [facility] Last Admin: 02/06/18 08:50 Dose: 200 mg Docusate Sodium (Colace) 100 mg PO BID [facility] Last Admin: 02/06/18 08:50 Dose: 100 mg Famotidine (Pepcid) 40 mg IVPUSH ONARRIVE [facility] Last Admin: 02/05/18 11:01 Dose: 40 mg Famotidine (Pepcid) 40 mg PO DAILY [facility] Last Admin: 02/06/18 08:49 Dose: 40 mg Fluoxetine HCl (Prozac) 40 mg PO BID [facility] Furosemide (Lasix) 20 - 40 mg PO DAILY [facility] Last Admin: 02/06/18 08:50 Dose: 40 mg Acetaminophen 1,000 mg/ Premix 100 mls @ 400 mls/hr IV ONARRIVE [facility] Last Infusion: 02/05/18 11:17 Dose: Infused Ropivacaine 49.25 ml/Ketorolac Tromethamine 30 mg/Epinephrine HCl 0.5 mg/ Clonidine HCl 80 mcg/ Sodium Chloride 100 mls @ 50 mls/sec INJECT ASDIRECTED [facility] Tranexamic Acid 4,000 mg/ (Sodium Chloride) 140 mls @ 600 mls/hr IV ASDIRECTED [facility] Lactated Ringer's (Ringers, Lactated) 1,000 mls @ 20 mls/hr IV ASDIRECTED [facility] Last Admin: 02/05/18 21:00 Dose: 20 mls/hr Ketorolac Tromethamine (Toradol) 30 mg IVPUSH ONARRIVE [facility] Last Admin: 02/05/18 11:01 Dose: 30 mg Morphine Sulfate (Morphine) 1 - 3 mg IVPUSH Q3H PRN PRN Reason: Pain Last Admin: 02/06/18 09:56 Dose: 3 mg Multivitamins/Minerals (Thera M Plus) 1 tab PO ASDIRECTED [facility] Ondansetron HCl (Zofran) 4 mg IV Q6HR PRN PRN Reason: NAUSEA/VOMITING Oxycodone HCl (Oxycontin) 10 mg PO ONARRIVE [facility] Last Admin: 02/05/18 11:01 Dose: 10 mg Psyllium Husk (Metamucil Sugar Free) 1 pkt PO ASDIRECTED PRN PRN Reason: Constipation Scopolamine (Transderm-Scop) 1.5 mg TRDERM ONARRIVE [facility] Last Admin: 02/05/18 11:00 Dose: 1.5 mg Sodium Chloride (Saline Flush) 10 ml FLUSH ASDIRECTED PRN PRN Reason: Keep Vein Open Sodium Chloride (Saline Flush) 2.5 ml FLUSH ASDIRECTED PRN PRN Reason: Keep Vein Open Discontinued Medications Etomidate (Amidate) Confirm Administered Dose 40 mg IVPUSH .STK-MED ONE Stop: 02/05/18 11:26 Fentanyl (Sublimaze) Confirm Administered Dose 100 mcg .ROUTE .STK-MED ONE Stop: 02/05/18 11:25 Fentanyl (Sublimaze) Confirm Administered Dose 250 mcg .ROUTE .STK-MED ONE Stop: 02/05/18 11:25 Fluoxetine HCl (Prozac) 80 mg PO DAILY [facility] Last Admin: 02/06/18 08:49 Dose: 40 mg Clindamycin Phosphate 900 mg/ (Premix) 50 mls @ 100 mls/hr IV ONCALL [facility] Last Admin: 02/05/18 11:29 Dose: 100 mls/hr Lactated Ringer's (Ringers, Lactated) 1,000 mls @ 100 mls/hr IV ASDIRECTED [facility] Last Admin: 02/05/18 10:42 Dose: 100 mls/hr Acetaminophen 1,000 mg/ Premix 100 mls @ 400 mls/hr IV Q6H [facility] Stop: 02/06/18 05:14 Last Admin: 02/06/18 04:55 Dose: 400 mls/hr Acetaminophen (Ofirmev) Confirm Administered Dose 100 mls @ as directed IV .STK- MED ONE Stop: 02/05/18 15:37 Clindamycin Phosphate 900 mg/ (Premix) 50 mls @ 100 mls/hr IV Q8H [facility] Stop: 02/06/18 07:29 Last Admin: 02/06/18 06:13 Dose: 100 mls/hr Ketorolac Tromethamine (Toradol) 30 mg IVPUSH Q6H [facility] Stop: 02/06/18 05:00 Last Admin: 02/06/18 04:55 Dose: 30 mg Lidocaine (Xylocaine-Mpf 2%) Confirm Administered Dose 10 ml .ROUTE .STK-MED ONE Stop: 02/05/18 11:25 Midazolam HCl (Versed 1 Mg/Ml) Confirm Administered Dose 2 mg .ROUTE .STK-MED ONE Stop: 02/05/18 11:25 Morphine Sulfate (Morphine Child Study Team Director 30 Mg In 30 Ml) 30 mg IV ASDIRECTED [facility]; Protocol Last Admin: 02/05/18 14:15 Dose: 30 mg Ondansetron HCl (Zofran) Confirm Administered Dose 4 mg .ROUTE .STK-MED ONE Stop: 02/05/18 11:26 Oxycodone HCl (Oxycodone) 5 - 10 mg PO Q4H PRN PRN Reason: Pain Stop: 02/06/18 08:00 Last Admin: 02/06/18 06:13 Dose: 5 mg Oxycodone HCl (Oxycontin) 10 mg PO Q12HR [facility] Last Admin: 02/05/18 20:56 Dose: 10 mg Oxycodone/Acetaminophen (Percocet 325-5 Mg) 1 - 2 tab PO Q4H PRN PRN Reason: Pain Propofol (Diprivan 20 Ml) Confirm Administered Dose 400 mg .ROUTE .STK-MED ONE Stop: 02/05/18 11:25 Tranexamic Acid (Cyklokapron) Confirm Administered Dose 4,000 mg .ROUTE .STK- MED ONE Stop: 02/05/18 07:23 - My Orders Last 24 Hours: Active Orders 24 hr Category Date Time Status Patient Status [ADT] Routine ADT 02/05/18 17:01 Active Activity as Tolerated [RC] .Routine Care 02/05/18 13:53 Active CPAP Adult [RT BiPAP/CPAP] [RC] ASDIRECTED Care 02/05/18 14:53 Active Dressing Change [Wound Care] [RC] Q12H Care 02/05/18 13:53 Active Intake and Output [RC] Q12H Care 02/05/18 13:53 Active Neurovascular Check [RC] Q2HR Care 02/05/18 13:53 Active Notify Provider Consults [RC] ASDIRECTED Care 02/05/18 13:57 Active Notify Provider Vital Signs [RC] ASDIRECTED Care 02/05/18 13:53 Active Overnight Pulse Oximetry [RC] Click to Edit Care 02/05/18 14:52 Active Oxygen Therapy [RC] ASDIRECTED Care 02/05/18 14:48 Active RT Incentive Spirometry [RC] ASDIRECTED Care 02/05/18 13:53 Active Turn, Cough, Deep Breathe [RC] .PRN Care 02/05/18 17:09 Active Vital Signs [RC] Q4H Care 02/05/18 13:53 Active Consult to Physician [CONS] Routine Cons 02/05/18 13:52 Active PT Evaluation and Treatment [CONS] Routine Cons 02/05/18 13:53 Active HEMOGLOBIN/HEMATOCRIT,HH [HEME] DAILY Lab 02/07/18 06:00 Ordered HEMOGLOBIN/HEMATOCRIT,HH [HEME] DAILY Lab 02/08/18 06:00 Ordered Acetaminophen/HYDROcodone [[place] 325-5 MG] Med 02/06/18 08:33 Active 1 - 2 tab PO Q4H PRN Alum Hydrox/Mag Hydrox/Simeth [Mag-Al Plus] Med 02/05/18 13:54 Active 30 ml PO Q4H PRN Aspirin Med 02/06/18 09:00 Active 325 mg PO BID Bisacodyl [Dulcolax] Med 02/05/18 13:54 Active 10 mg RECTAL DAILY PRN Carvedilol [Coreg] Med 02/05/18 21:00 Active 25 mg PO BID Celecoxib [CeleBREX] Med 02/06/18 09:00 Active 200 mg PO BID Docusate Sodium [Colace] Med 02/05/18 21:00 Active 100 mg PO BID FLUoxetine [PROzac] Med 02/06/18 21:00 Active 40 mg PO BID Famotidine [Pepcid] Med 02/06/18 09:00 Active 40 mg PO DAILY Furosemide [Lasix] Med 02/06/18 09:00 Active 20 - 40 mg PO DAILY Lactated Ringers [Ringers, Lactated] 1,000 ml Med 02/05/18 20:45 Active IV ASDIRECTED Morphine Med 02/06/18 08:00 Active 1 - 3 mg IVPUSH Q3H PRN Multivitamins w-Iron/Ca/FA/Min [Thera M Plus] Med 02/05/18 14:00 Active 1 tab PO ASDIRECTED Ondansetron [Zofran] Med 02/05/18 13:53 Active 4 mg IV Q6HR PRN Psyllium Husk/Aspartame [Metamucil Sugar Free] Med 02/05/18 13:57 Active 1 pkt PO ASDIRECTED PRN Sodium Chloride 0.9% [Saline Flush] Med 02/06/18 08:33 Active 10 ml FLUSH ASDIRECTED PRN Sodium Chloride 0.9% [Saline Flush] Med 02/06/18 08:33 Active 2.5 ml FLUSH ASDIRECTED PRN atorvaSTATin [Lipitor] Med 02/06/18 09:00 Active 10 mg PO DAILY Convert IV to Saline Lock [OM.PC] Routine Oth 02/06/18 08:33 Ordered Ice Therapy [OM.PC] Routine Oth 02/05/18 13:53 Ordered Pulse Oximetry Continuous Monitoring [OM.PC] Routine Oth 02/05/18 14:51 Ordered Medication Orders Hydrocodone Bitart/Acetaminophen ([place] 325-5 Mg) 1 - 2 tab PO Q4H PRN PRN Reason: Pain Last Admin: 02/06/18 12:22 Dose: 2 tab Admin: 02/06/18 08:50 Dose: 2 tab Al Hydroxide/Mg Hydroxide (Mag-Al Plus) 30 ml PO Q4H PRN PRN Reason: indigestion Aspirin (Aspirin) 325 mg PO BID [facility] Last Admin: 02/06/18 08:50 Dose: 325 mg Atorvastatin Calcium (Lipitor) 10 mg PO DAILY [facility] Last Admin: 02/06/18 08:49 Dose: 10 mg Bisacodyl (Dulcolax) 10 mg RECTAL DAILY PRN PRN Reason: Constipation Carvedilol (Coreg) 25 mg PO BID [facility] Last Admin: 02/06/18 08:51 Dose: 25 mg Admin: 02/05/18 20:52 Dose: 25 mg Celecoxib (Celebrex) 200 mg PO BID [facility] Last Admin: 02/06/18 08:50 Dose: 200 mg Docusate Sodium (Colace) 100 mg PO BID [facility] Last Admin: 02/06/18 08:50 Dose: 100 mg Admin: 02/05/18 20:52 Dose: 100 mg Famotidine (Pepcid) 40 mg IVPUSH ONARRIVE [facility] Last Admin: 02/05/18 11:01 Dose: 40 mg Famotidine (Pepcid) 40 mg PO DAILY [facility] Last Admin: 02/06/18 08:49 Dose: 40 mg Fluoxetine HCl (Prozac) 40 mg PO BID [facility] Furosemide (Lasix) 20 - 40 mg PO DAILY [facility] Last Admin: 02/06/18 08:50 Dose: 40 mg Acetaminophen 1,000 mg/ Premix 100 mls @ 400 mls/hr IV ONARRIVE [facility] Last Infusion: 02/05/18 11:17 Dose: 400 mls/hr Admin: 02/05/18 11:02 Dose: 400 mls/hr Ropivacaine 49.25 ml/Ketorolac Tromethamine 30 mg/Epinephrine HCl 0.5 mg/ Clonidine HCl 80 mcg/ Sodium Chloride 100 mls @ 50 mls/sec INJECT ASDIRECTED [facility] Tranexamic Acid 4,000 mg/ (Sodium Chloride) 140 mls @ 600 mls/hr IV ASDIRECTED [facility] Lactated Ringer's (Ringers, Lactated) 1,000 mls @ 20 mls/hr IV ASDIRECTED [facility] Last Admin: 02/05/18 21:00 Dose: 20 mls/hr Ketorolac Tromethamine (Toradol) 30 mg IVPUSH ONARRIVE [facility] Last Admin: 02/05/18 11:01 Dose: 30 mg Morphine Sulfate (Morphine) 1 - 3 mg IVPUSH Q3H PRN PRN Reason: Pain Last Admin: 02/06/18 09:56 Dose: 3 mg Multivitamins/Minerals (Thera M Plus) 1 tab PO ASDIRECTED [facility] Ondansetron HCl (Zofran) 4 mg IV Q6HR PRN PRN Reason: NAUSEA/VOMITING Oxycodone HCl (Oxycontin) 10 mg PO ONARRIVE [facility] Last Admin: 02/05/18 11:01 Dose: 10 mg Psyllium Husk (Metamucil Sugar Free) 1 pkt PO ASDIRECTED PRN PRN Reason: Constipation Scopolamine (Transderm-Scop) 1.5 mg TRDERM ONARRIVE [facility] Last Admin: 02/05/18 11:00 Dose: 1.5 mg Sodium Chloride (Saline Flush) 10 ml FLUSH ASDIRECTED PRN PRN Reason: Keep Vein Open Sodium Chloride (Saline Flush) 2.5 ml FLUSH ASDIRECTED PRN PRN Reason: Keep Vein Open - Plan Plan (Free Text/Narrative):: 1300 Patient seen and examined. Agree with the above note. She is currently ambulating with the assistance of the nurse in the room. She does complain of some pain in the knee. She is currently taking the oral pain medication as well as using morphine on an as-needed basis. She did have her Cao catheter removed earlier today. She has not yet had any urine output. She is not complaining of any bladder fullness. Her hemoglobin is stable. Exam of the knee shows a dressing to be dry and intact. AT/EHL/gastroc 5/5. Sensation grossly intact. DP/PT pulses 2+. 1. continue PT and ambulation 2. Vitals stable, plan to transfer to regular floor--continue pulse oximetry 3. continue current pain management 4. watch uop--if no output, bladder scan--may need straight cath if unable to void 5. plan discharge tomorrow rrk
[2018-02-06] MEDS: atorvaSTATin 10 MG Tab PO SCH (08:49)
[2018-02-06] MEDS: Famotidine 20 MG Tab PO SCH (08:49)
[2018-02-06] MEDS: Docusate Sodium 100 MG Cap PO SCH ×2 (08:50→20:24)
[2018-02-06] MEDS: Aspirin 325 MG Tab PO SCH ×2 (08:50→20:24)
[2018-02-06] MEDS: Celecoxib 100 MG Cap PO SCH ×2 (08:50→20:25)
[2018-02-06] MEDS: Furosemide 40 MG Tab PO SCH (08:50)
[2018-02-06] MEDS: Acetaminophen/HYDROcodone 325-5 MG Tab PO PRN ×3 (08:50→16:45)
[2018-02-06] MEDS: Carvedilol 25 MG Tab PO SCH ×2 (08:51→20:25)
[2018-02-06] MEDS ORDERED: FLUoxetine 20 MG Cap PO SCH (09:00)
--- NOTE | 2018-02-06 09:07 | PCM.CONSN ---
- General Info Date of Service: 02/06/18 Admission Dx/Problem (Free Text): Admission Diagnosis/Problem Admission Diagnosis/Problem Replacement of total knee joint Subjective Update: Patient is doing well this morning. She is up in a bedside chair eating breakfast. She has some shortness of breath but this is improved from when she came out of the PACU yesterday. She also reports left knee pain status post total left knee replacement. This being managed by orthopedics. She denies any chest pain or peripheral edema. Functional Status: Reports: Tolerating Diet, Ambulating, Urinating - Review of Systems General: Reports: No Symptoms HEENT: Reports: No Symptoms Pulmonary: Reports: Shortness of Breath Cardiovascular: Reports: No Symptoms Gastrointestinal: Reports: No Symptoms Genitourinary: Reports: No Symptoms Musculoskeletal: Reports: Other (Left knee pain status post total left knee replacement) Skin: Reports: No Symptoms Neurological: Reports: No Symptoms Psychiatric: Reports: No Symptoms - Patient Data Vitals - Most Recent: Last Vital Signs Temp 97.6 F 02/06/18 04:00 Pulse 63 02/06/18 08:51 Resp 15 02/06/18 07:35 BP 162/124 H 02/06/18 08:51 Pulse Ox 95 02/06/18 07:00 Weight - Most Recent: 220 lb I&O - Last 24 Hours: Intake & Output 02/05/18 02/06/18 02/06/18 22:59 06:59 14:59 Intake Total 3550 1140 Output Total 450 500 Balance 3100 640 Lab Results Last 24 Hours: Laboratory Results - last 24 hr 02/05/18 02/06/18 02/06/18 Range/Units 10:55 05:03 05:03 Hgb 10.6 L (12.0-16.0) g/dL Hct 33.4 L (36.0-46.0) % Sodium 140 (136-145) mmol/L Potassium 4.1 (3.5-5.1) mmol/L Chloride 106 (98-107) mmol/L Carbon Dioxide 29.6 (21.0-32.0) mmol/L BUN 14 (7.0-18.0) mg/dL Creatinine 0.8 (0.6-1.0) mg/dL Est Cr Clr Drug Dosing 65.38 mL/min Estimated GFR (MDRD) > 60.0 ml/min Glucose 101 (74-106) mg/dL Calcium 8.2 L (8.5-10.1) mg/dL Blood Type AB POSITIVE Antibody Screen NEGATIVE Med Orders - Current: Current Medications Hydrocodone Bitart/Acetaminophen ([place] 325-5 Mg) 1 - 2 tab PO Q4H PRN PRN Reason: Pain Last Admin: 02/06/18 08:50 Dose: 2 tab Al Hydroxide/Mg Hydroxide (Mag-Al Plus) 30 ml PO Q4H PRN PRN Reason: indigestion Aspirin (Aspirin) 325 mg PO BID [facility] Last Admin: 02/06/18 08:50 Dose: 325 mg Atorvastatin Calcium (Lipitor) 10 mg PO DAILY [facility] Last Admin: 02/06/18 08:49 Dose: 10 mg Bisacodyl (Dulcolax) 10 mg RECTAL DAILY PRN PRN Reason: Constipation Carvedilol (Coreg) 25 mg PO BID [facility] Last Admin: 02/06/18 08:51 Dose: 25 mg Celecoxib (Celebrex) 200 mg PO BID [facility] Last Admin: 02/06/18 08:50 Dose: 200 mg Docusate Sodium (Colace) 100 mg PO BID [facility] Last Admin: 02/06/18 08:50 Dose: 100 mg Famotidine (Pepcid) 40 mg IVPUSH ONARRIVE [facility] Last Admin: 02/05/18 11:01 Dose: 40 mg Famotidine (Pepcid) 40 mg PO DAILY [facility] Last Admin: 02/06/18 08:49 Dose: 40 mg Fluoxetine HCl (Prozac) 80 mg PO DAILY [facility] Last Admin: 02/06/18 08:49 Dose: 80 mg Furosemide (Lasix) 20 - 40 mg PO DAILY [facility] Last Admin: 02/06/18 08:50 Dose: 40 mg Acetaminophen 1,000 mg/ Premix 100 mls @ 400 mls/hr IV ONARRIVE [facility] Last Infusion: 02/05/18 11:17 Dose: Infused Ropivacaine 49.25 ml/Ketorolac Tromethamine 30 mg/Epinephrine HCl 0.5 mg/ Clonidine HCl 80 mcg/ Sodium Chloride 100 mls @ 50 mls/sec INJECT ASDIRECTED [facility] Tranexamic Acid 4,000 mg/ (Sodium Chloride) 140 mls @ 600 mls/hr IV ASDIRECTED [facility] Lactated Ringer's (Ringers, Lactated) 1,000 mls @ 20 mls/hr IV ASDIRECTED [facility] Last Admin: 02/05/18 21:00 Dose: 20 mls/hr Ketorolac Tromethamine (Toradol) 30 mg IVPUSH ONARRIVE [facility] Last Admin: 02/05/18 11:01 Dose: 30 mg Morphine Sulfate (Morphine) 1 - 3 mg IVPUSH Q3H PRN PRN Reason: Pain Multivitamins/Minerals (Thera M Plus) 1 tab PO ASDIRECTED [facility] Ondansetron HCl (Zofran) 4 mg IV Q6HR PRN PRN Reason: NAUSEA/VOMITING Oxycodone HCl (Oxycontin) 10 mg PO ONARRIVE [facility] Last Admin: 02/05/18 11:01 Dose: 10 mg Psyllium Husk (Metamucil Sugar Free) 1 pkt PO ASDIRECTED PRN PRN Reason: Constipation Scopolamine (Transderm-Scop) 1.5 mg TRDERM ONARRIVE [facility] Last Admin: 02/05/18 11:00 Dose: 1.5 mg Sodium Chloride (Saline Flush) 10 ml FLUSH ASDIRECTED PRN PRN Reason: Keep Vein Open Sodium Chloride (Saline Flush) 2.5 ml FLUSH ASDIRECTED PRN PRN Reason: Keep Vein Open Discontinued Medications Etomidate (Amidate) Confirm Administered Dose 40 mg IVPUSH .STK-MED ONE Stop: 02/05/18 11:26 Fentanyl (Sublimaze) Confirm Administered Dose 100 mcg .ROUTE .STK-MED ONE Stop: 02/05/18 11:25 Fentanyl (Sublimaze) Confirm Administered Dose 250 mcg .ROUTE .STK-MED ONE Stop: 02/05/18 11:25 Clindamycin Phosphate 900 mg/ (Premix) 50 mls @ 100 mls/hr IV ONCALL [facility] Last Admin: 02/05/18 11:29 Dose: 100 mls/hr Lactated Ringer's (Ringers, Lactated) 1,000 mls @ 100 mls/hr IV ASDIRECTED [facility] Last Admin: 02/05/18 10:42 Dose: 100 mls/hr Acetaminophen 1,000 mg/ Premix 100 mls @ 400 mls/hr IV Q6H [facility] Stop: 02/06/18 05:14 Last Admin: 02/06/18 04:55 Dose: 400 mls/hr Acetaminophen (Ofirmev) Confirm Administered Dose 100 mls @ as directed IV .STK- MED ONE Stop: 02/05/18 15:37 Clindamycin Phosphate 900 mg/ (Premix) 50 mls @ 100 mls/hr IV Q8H [facility] Stop: 02/06/18 07:29 Last Admin: 02/06/18 06:13 Dose: 100 mls/hr Ketorolac Tromethamine (Toradol) 30 mg IVPUSH Q6H [facility] Stop: 02/06/18 05:00 Last Admin: 02/06/18 04:55 Dose: 30 mg Lidocaine (Xylocaine-Mpf 2%) Confirm Administered Dose 10 ml .ROUTE .STK-MED ONE Stop: 02/05/18 11:25 Midazolam HCl (Versed 1 Mg/Ml) Confirm Administered Dose 2 mg .ROUTE .STK-MED ONE Stop: 02/05/18 11:25 Morphine Sulfate (Morphine Cold Roll Catcher 30 Mg In 30 Ml) 30 mg IV ASDIRECTED [facility]; Protocol Last Admin: 02/05/18 14:15 Dose: 30 mg Ondansetron HCl (Zofran) Confirm Administered Dose 4 mg .ROUTE .STK-MED ONE Stop: 02/05/18 11:26 Oxycodone HCl (Oxycodone) 5 - 10 mg PO Q4H PRN PRN Reason: Pain Stop: 02/06/18 08:00 Last Admin: 02/06/18 06:13 Dose: 5 mg Oxycodone HCl (Oxycontin) 10 mg PO Q12HR [facility] Last Admin: 02/05/18 20:56 Dose: 10 mg Oxycodone/Acetaminophen (Percocet 325-5 Mg) 1 - 2 tab PO Q4H PRN PRN Reason: Pain Propofol (Diprivan 20 Ml) Confirm Administered Dose 400 mg .ROUTE .STK-MED ONE Stop: 02/05/18 11:25 Tranexamic Acid (Cyklokapron) Confirm Administered Dose 4,000 mg .ROUTE .STK- MED ONE Stop: 02/05/18 07:23 - Exam Quality Assessment: Supplemental Oxygen (CPAP), DVT Prophylaxis General: Alert, Oriented, Cooperative, No Acute Distress Lungs: Clear to Auscultation, Normal Respiratory Effort Cardiovascular: Regular Rate, Regular Rhythm GI/Abdominal Exam: Normal Bowel Sounds, Soft, Non-Tender, No Organomegaly, No Distention, No Abnormal Bruit, No Mass, Pelvis Stable Extremities: No Pedal Edema, Normal Capillary Refill, Other (Left knee is dressed with Polar Care in place.) Peripheral Pulses: 2+: Radial (L), Radial (R), Posterior Tibial (L), Posterior Tibial (R) Skin: Warm, Dry, Intact Wound/Incisions: Healing Well, Other (Left knee is dressed and Polar Care is in place.) Neurological: No New Focal Deficit Psy/Mental Status: Alert, Normal Affect, Normal Mood Consult PN Assessment/Plan POD#: 1 Procedures: Procedures ASSAY OF NATRIURETIC PEPTIDE (11/09/16) ASSAY THYROID STIM HORMONE (08/23/17) CARDIOVASCULAR STRESS TEST (10/14/16) CHEST X-RAY 2VW FRONTAL&LATL (11/09/16) COLONOSCOPY AND BIOPSY (08/03/17) DRAIN/INJ JOINT/BURSA W/O US (10/25/17) ELECTROCARDIOGRAM TRACING (07/10/15) EMERGENCY DEPT VISIT (01/31/15) GLYCOSYLATED HEMOGLOBIN TEST (08/23/17) HT MUSCLE IMAGE SPECT MULT (10/14/16) HT MUSCLE IMAGE SPECT SING (10/24/16) INFLUENZA ASSAY W/OPTIC (01/31/15) LIPID PANEL (06/12/14) METABOLIC PANEL TOTAL CA (11/09/16) MRI JNT OF LWR EXTRE W/O DYE (01/04/18) PART REMOVAL OF ANKLE/HEEL (10/25/17) POLYSOM 6/>YRS CPAP 4/> PARM (12/26/16) ROUTINE VENIPUNCTURE (11/09/16) TISSUE EXAM BY PATHOLOGIST (08/03/17) TTE W/DOPPLER COMPLETE (09/07/16) X-RAY EXAM HIP UNI 2-3 VIEWS (09/27/17) X-RAY EXAM KNEE 4 OR MORE (09/27/17) X-RAY EXAM OF FOOT (11/07/17) X-RAY EXAM OF FOOT (09/27/17) (1) Status post left knee replacement SNOMED Code(s): 4611234597029, 9152049004585 Code(s): Z96.652 - PRESENCE OF LEFT ARTIFICIAL KNEE JOINT Current Visit: Yes (2) Left ventricular outflow obstruction SNOMED Code(s): 535813601 Code(s): Q24.8 - OTHER SPECIFIED CONGENITAL MALFORMATIONS OF HEART Current Visit: Yes Problem List Initiated/Reviewed/Updated: Yes Plan: 57-year-old female with a history of hypertension, obstructive sleep apnea, dyslipidemia and diastolic heart 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 Maria Esther Gaytan. We have been consulted secondary to the patient's cardiac history and to watch her blood pressure, heart rate and volume status. #1. Day 1 Status post total left knee replacement: -Orthopedics is following. #2. Diastolic heart failure with subaortic left ventricular outflow tract obstruction: -Continue to watch the patient's blood pressure and heart rate. We need to be careful about fluids to ensure that we don't overload the patient. #3. Obstructive sleep apnea: -Patient has her CPAP machine from home and will use here in the hospital. #4. Hypertension: -Home blood pressure medications will be restarted. Blood pressure is currently stable. DVT prophylaxis: Recommended when deemed appropriate by orthopedics. They have started the patient on aspirin twice a day.
[2018-02-06] MEDS: Morphine 4 MG/ML Syringe IVPUSH PRN ×3 (09:56→20:15)
[2018-02-06] MEDS: FLUoxetine 20 MG Cap PO SCH (20:24)
[2018-02-07] MEDS: Acetaminophen/HYDROcodone 325-5 MG Tab PO PRN ×4 (02:08→14:23)
[2018-02-07 06:12] LABS: CHLORIDE,CL 103 mmol/L (98-107); SODIUM,NA 137 mmol/L (136-145)
[2018-02-07] MEDS: Docusate Sodium 100 MG Cap PO SCH (08:04)
[2018-02-07] MEDS: Famotidine 20 MG Tab PO SCH (08:04)
[2018-02-07] MEDS: atorvaSTATin 10 MG Tab PO SCH (08:04)
[2018-02-07] MEDS: Celecoxib 100 MG Cap PO SCH (08:05)
[2018-02-07] MEDS: Furosemide 40 MG Tab PO SCH (08:05)
[2018-02-07] MEDS: Carvedilol 25 MG Tab PO SCH (08:05)
[2018-02-07] MEDS: FLUoxetine 20 MG Cap PO SCH (08:05)
[2018-02-07] MEDS: Aspirin 325 MG Tab PO SCH (08:05)
--- NOTE | 2018-02-07 08:47 | PCM.SURGPN ---
<Rolando Young - Last Filed: 02/07/18 09:10> - General Info Date of Service: 02/07/18 Date of Surgery/Procedure: 02/05/18 POD#: 2 - Review of Systems Systems Review Comment:: No major changes overnight. Pain is tolerable with pain regimen. Has been out of bed and working with PT. Tolerating oral intake. Voiding on own. No nausea, vomiting, fever, or chills. Denies any new chest pain or SOB. No numbness or tingling in extremities. - Patient Data Vitals - Most Recent: Last Vital Signs Temp 37.3 C 02/07/18 08:00 Pulse 72 02/07/18 08:05 Resp 18 02/07/18 08:00 BP 92/52 L 02/07/18 08:05 Pulse Ox 90 L 02/07/18 08:00 Weight - Most Recent: 99.79 kg I&O - Last 24 Hours: Intake & Output 02/06/18 02/07/18 02/07/18 22:59 06:59 14:59 Intake Total 1370 700 Output Total 350 550 Balance 1020 150 Lab Results Last 24 Hrs: Laboratory Results - last 24 hr 02/07/18 02/07/18 Range/Units 05:07 05:07 Hgb 10.9 L (12.0-16.0) g/dL Hct 33.7 L (36.0-46.0) % Sodium 137 (136-145) mmol/L Potassium 3.9 (3.5-5.1) mmol/L Chloride 103 (98-107) mmol/L Carbon Dioxide 26.9 (21.0-32.0) mmol/L BUN 16 (7.0-18.0) mg/dL Creatinine 0.8 (0.6-1.0) mg/dL Est Cr Clr Drug Dosing 65.38 mL/min Estimated GFR (MDRD) > 60.0 ml/min Glucose 105 (74-106) mg/dL Calcium 8.3 L (8.5-10.1) mg/dL Med Orders - Current: Current Medications Hydrocodone Bitart/Acetaminophen (Correll 325-5 Mg) 1 - 2 tab PO Q4H PRN PRN Reason: Pain Last Admin: 02/07/18 06:54 Dose: 2 tab Al Hydroxide/Mg Hydroxide (Mag-Al Plus) 30 ml PO Q4H PRN PRN Reason: indigestion Aspirin (Aspirin) 325 mg PO BID [facility] Last Admin: 02/07/18 08:05 Dose: 325 mg Atorvastatin Calcium (Lipitor) 10 mg PO DAILY [facility] Last Admin: 02/07/18 08:04 Dose: 10 mg Bisacodyl (Dulcolax) 10 mg RECTAL DAILY PRN PRN Reason: Constipation Carvedilol (Coreg) 25 mg PO BID [facility] Last Admin: 02/07/18 08:05 Dose: 25 mg Celecoxib (Celebrex) 200 mg PO BID [facility] Last Admin: 02/07/18 08:05 Dose: 200 mg Docusate Sodium (Colace) 100 mg PO BID [facility] Last Admin: 02/07/18 08:04 Dose: 100 mg Famotidine (Pepcid) 40 mg IVPUSH ONARRIVE [facility] Last Admin: 02/05/18 11:01 Dose: 40 mg Famotidine (Pepcid) 40 mg PO DAILY [facility] Last Admin: 02/07/18 08:04 Dose: 40 mg Fluoxetine HCl (Prozac) 40 mg PO BID [facility] Last Admin: 02/07/18 08:05 Dose: 40 mg Furosemide (Lasix) 20 - 40 mg PO DAILY [facility] Last Admin: 02/07/18 08:05 Dose: 40 mg Acetaminophen 1,000 mg/ Premix 100 mls @ 400 mls/hr IV ONARRIVE [facility] Last Infusion: 02/05/18 11:17 Dose: Infused Ropivacaine 49.25 ml/Ketorolac Tromethamine 30 mg/Epinephrine HCl 0.5 mg/ Clonidine HCl 80 mcg/ Sodium Chloride 100 mls @ 50 mls/sec INJECT ASDIRECTED [facility] Tranexamic Acid 4,000 mg/ (Sodium Chloride) 140 mls @ 600 mls/hr IV ASDIRECTED [facility] Lactated Ringer's (Ringers, Lactated) 1,000 mls @ 20 mls/hr IV ASDIRECTED [facility] Last Admin: 02/05/18 21:00 Dose: 20 mls/hr Ketorolac Tromethamine (Toradol) 30 mg IVPUSH ONARRIVE [facility] Last Admin: 02/05/18 11:01 Dose: 30 mg Morphine Sulfate (Morphine) 1 - 3 mg IVPUSH Q3H PRN PRN Reason: Pain Last Admin: 02/06/18 20:15 Dose: 3 mg Multivitamins/Minerals (Thera M Plus) 1 tab PO ASDIRECTED [facility] Ondansetron HCl (Zofran) 4 mg IV Q6HR PRN PRN Reason: NAUSEA/VOMITING Oxycodone HCl (Oxycontin) 10 mg PO ONARRIVE [facility] Last Admin: 02/05/18 11:01 Dose: 10 mg Psyllium Husk (Metamucil Sugar Free) 1 pkt PO ASDIRECTED PRN PRN Reason: Constipation Scopolamine (Transderm-Scop) 1.5 mg TRDERM ONARRIVE [facility] Last Admin: 02/05/18 11:00 Dose: 1.5 mg Sodium Chloride (Saline Flush) 10 ml FLUSH ASDIRECTED PRN PRN Reason: Keep Vein Open Sodium Chloride (Saline Flush) 2.5 ml FLUSH ASDIRECTED PRN PRN Reason: Keep Vein Open Discontinued Medications Etomidate (Amidate) Confirm Administered Dose 40 mg IVPUSH .STK-MED ONE Stop: 02/05/18 11:26 Fentanyl (Sublimaze) Confirm Administered Dose 100 mcg .ROUTE .STK-MED ONE Stop: 02/05/18 11:25 Fentanyl (Sublimaze) Confirm Administered Dose 250 mcg .ROUTE .STK-MED ONE Stop: 02/05/18 11:25 Fluoxetine HCl (Prozac) 80 mg PO DAILY [facility] Last Admin: 02/06/18 08:49 Dose: 40 mg Clindamycin Phosphate 900 mg/ (Premix) 50 mls @ 100 mls/hr IV ONCALL [facility] Last Admin: 02/05/18 11:29 Dose: 100 mls/hr Lactated Ringer's (Ringers, Lactated) 1,000 mls @ 100 mls/hr IV ASDIRECTED [facility] Last Admin: 02/05/18 10:42 Dose: 100 mls/hr Acetaminophen 1,000 mg/ Premix 100 mls @ 400 mls/hr IV Q6H [facility] Stop: 02/06/18 05:14 Last Admin: 02/06/18 04:55 Dose: 400 mls/hr Acetaminophen (Ofirmev) Confirm Administered Dose 100 mls @ as directed IV .STK- MED ONE Stop: 02/05/18 15:37 Clindamycin Phosphate 900 mg/ (Premix) 50 mls @ 100 mls/hr IV Q8H [facility] Stop: 02/06/18 07:29 Last Admin: 02/06/18 06:13 Dose: 100 mls/hr Ketorolac Tromethamine (Toradol) 30 mg IVPUSH Q6H [facility] Stop: 02/06/18 05:00 Last Admin: 02/06/18 04:55 Dose: 30 mg Lidocaine (Xylocaine-Mpf 2%) Confirm Administered Dose 10 ml .ROUTE .STK-MED ONE Stop: 02/05/18 11:25 Midazolam HCl (Versed 1 Mg/Ml) Confirm Administered Dose 2 mg .ROUTE .STK-MED ONE Stop: 02/05/18 11:25 Morphine Sulfate (Morphine Business Practices Officer 30 Mg In 30 Ml) 30 mg IV ASDIRECTED [facility]; Protocol Last Admin: 02/05/18 14:15 Dose: 30 mg Ondansetron HCl (Zofran) Confirm Administered Dose 4 mg .ROUTE .STK-MED ONE Stop: 02/05/18 11:26 Oxycodone HCl (Oxycodone) 5 - 10 mg PO Q4H PRN PRN Reason: Pain Stop: 02/06/18 08:00 Last Admin: 02/06/18 06:13 Dose: 5 mg Oxycodone HCl (Oxycontin) 10 mg PO Q12HR [facility] Last Admin: 02/05/18 20:56 Dose: 10 mg Oxycodone/Acetaminophen (Percocet 325-5 Mg) 1 - 2 tab PO Q4H PRN PRN Reason: Pain Propofol (Diprivan 20 Ml) Confirm Administered Dose 400 mg .ROUTE .STK-MED ONE Stop: 02/05/18 11:25 Tranexamic Acid (Cyklokapron) Confirm Administered Dose 4,000 mg .ROUTE .STK- MED ONE Stop: 02/05/18 07:23 - Exam Wound/Incisions: Dressing Dry and Intact, Other (Appropriately tender over inicison site. ) General: Alert Lungs: Clear to Auscultation Cardiovascular: Regular Rate GI/Abdominal Exam: Soft, Non-Tender, No Distention Skin: Warm, Dry - Problem List Review Problem List Initiated/Reviewed/Updated: Yes - My Orders Last 24 Hours: Active Orders 24 hr Category Date Time Status Admission Status [Patient Status] [ADT] Routine ADT 02/06/18 14:16 Active Communication Order [RC] ROUTINE Care 02/06/18 14:19 Active Telemetry Monitoring [Cardiac Monitoring] [RC] Q8H Care 02/06/18 15:06 Active HEMOGLOBIN/HEMATOCRIT,HH [HEME] DAILY Lab 02/08/18 06:00 Ordered Acetaminophen/HYDROcodone [Correll 325-5 MG] Med 02/06/18 08:33 Active 1 - 2 tab PO Q4H PRN Aspirin Med 02/06/18 09:00 Active 325 mg PO BID Celecoxib [CeleBREX] Med 02/06/18 09:00 Active 200 mg PO BID FLUoxetine [PROzac] Med 02/06/18 21:00 Active 40 mg PO BID Famotidine [Pepcid] Med 02/06/18 09:00 Active 40 mg PO DAILY Furosemide [Lasix] Med 02/06/18 09:00 Active 20 - 40 mg PO DAILY Morphine Med 02/06/18 08:00 Active 1 - 3 mg IVPUSH Q3H PRN Sodium Chloride 0.9% [Saline Flush] Med 02/06/18 08:33 Active 10 ml FLUSH ASDIRECTED PRN Sodium Chloride 0.9% [Saline Flush] Med 02/06/18 08:33 Active 2.5 ml FLUSH ASDIRECTED PRN atorvaSTATin [Lipitor] Med 02/06/18 09:00 Active 10 mg PO DAILY Convert IV to Saline Lock [OM.PC] Routine Oth 02/06/18 08:33 Ordered Medication Orders Hydrocodone Bitart/Acetaminophen (Correll 325-5 Mg) 1 - 2 tab PO Q4H PRN PRN Reason: Pain Last Admin: 02/07/18 06:54 Dose: 2 tab Admin: 02/07/18 02:08 Dose: 2 tab Admin: 02/06/18 16:45 Dose: 2 tab Admin: 02/06/18 12:22 Dose: 2 tab Admin: 02/06/18 08:50 Dose: 2 tab Al Hydroxide/Mg Hydroxide (Mag-Al Plus) 30 ml PO Q4H PRN PRN Reason: indigestion Aspirin (Aspirin) 325 mg PO BID [facility] Last Admin: 02/07/18 08:05 Dose: 325 mg Admin: 02/06/18 20:24 Dose: 325 mg Admin: 02/06/18 08:50 Dose: 325 mg Atorvastatin Calcium (Lipitor) 10 mg PO DAILY [facility] Last Admin: 02/07/18 08:04 Dose: 10 mg Admin: 02/06/18 08:49 Dose: 10 mg Bisacodyl (Dulcolax) 10 mg RECTAL DAILY PRN PRN Reason: Constipation Carvedilol (Coreg) 25 mg PO BID [facility] Last Admin: 02/07/18 08:05 Dose: 25 mg Admin: 02/06/18 20:25 Dose: 25 mg Admin: 02/06/18 08:51 Dose: 25 mg Admin: 02/05/18 20:52 Dose: 25 mg Celecoxib (Celebrex) 200 mg PO BID [facility] Last Admin: 02/07/18 08:05 Dose: 200 mg Admin: 02/06/18 20:25 Dose: 200 mg Admin: 02/06/18 08:50 Dose: 200 mg Docusate Sodium (Colace) 100 mg PO BID [facility] Last Admin: 02/07/18 08:04 Dose: 100 mg Admin: 02/06/18 20:24 Dose: 100 mg Admin: 02/06/18 08:50 Dose: 100 mg Admin: 02/05/18 20:52 Dose: 100 mg Famotidine (Pepcid) 40 mg IVPUSH ONARRIVE [facility] Last Admin: 02/05/18 11:01 Dose: 40 mg Famotidine (Pepcid) 40 mg PO DAILY [facility] Last Admin: 02/07/18 08:04 Dose: 40 mg Admin: 02/06/18 08:49 Dose: 40 mg Fluoxetine HCl (Prozac) 40 mg PO BID [facility] Last Admin: 02/07/18 08:05 Dose: 40 mg Admin: 02/06/18 20:24 Dose: 40 mg Furosemide (Lasix) 20 - 40 mg PO DAILY [facility] Last Admin: 02/07/18 08:05 Dose: 40 mg Admin: 02/06/18 08:50 Dose: 40 mg Acetaminophen 1,000 mg/ Premix 100 mls @ 400 mls/hr IV ONARRIVE [facility] Last Infusion: 02/05/18 11:17 Dose: 400 mls/hr Admin: 02/05/18 11:02 Dose: 400 mls/hr Ropivacaine 49.25 ml/Ketorolac Tromethamine 30 mg/Epinephrine HCl 0.5 mg/ Clonidine HCl 80 mcg/ Sodium Chloride 100 mls @ 50 mls/sec INJECT ASDIRECTED [facility] Tranexamic Acid 4,000 mg/ (Sodium Chloride) 140 mls @ 600 mls/hr IV ASDIRECTED [facility] Lactated Ringer's (Ringers, Lactated) 1,000 mls @ 20 mls/hr IV ASDIRECTED [facility] Last Admin: 02/05/18 21:00 Dose: 20 mls/hr Ketorolac Tromethamine (Toradol) 30 mg IVPUSH ONARRIVE [facility] Last Admin: 02/05/18 11:01 Dose: 30 mg Morphine Sulfate (Morphine) 1 - 3 mg IVPUSH Q3H PRN PRN Reason: Pain Last Admin: 02/06/18 20:15 Dose: 3 mg Admin: 02/06/18 14:34 Dose: 3 mg Admin: 02/06/18 09:56 Dose: 3 mg Multivitamins/Minerals (Thera M Plus) 1 tab PO ASDIRECTED [facility] Ondansetron HCl (Zofran) 4 mg IV Q6HR PRN PRN Reason: NAUSEA/VOMITING Oxycodone HCl (Oxycontin) 10 mg PO ONARRIVE [facility] Last Admin: 02/05/18 11:01 Dose: 10 mg Psyllium Husk (Metamucil Sugar Free) 1 pkt PO ASDIRECTED PRN PRN Reason: Constipation Scopolamine (Transderm-Scop) 1.5 mg TRDERM ONARRIVE [facility] Last Admin: 02/05/18 11:00 Dose: 1.5 mg Sodium Chloride (Saline Flush) 10 ml FLUSH ASDIRECTED PRN PRN Reason: Keep Vein Open Sodium Chloride (Saline Flush) 2.5 ml FLUSH ASDIRECTED PRN PRN Reason: Keep Vein Open - Assessment Assessment (Free Text/Narrative):: 57 yr old female POD#2 left TKA. Progressing appropriately. Pain control improved today. BP systolic 90-160s. HR in the 50-80s. Afebrile. - Plan Plan (Free Text/Narrative):: Continue work with therapies Encourage ongoing OOB and ambulation PO prn pain regimen ASA BID Anticipate discharge today, will review with Dr. Gaytan <Maria Esther aGytan - Last Filed: 02/07/18 14:52> - Patient Data Vitals - Most Recent: Last Vital Signs Temp 97.6 F 02/07/18 12:00 Pulse 65 02/07/18 12:00 Resp 16 05/02/18 12:00 BP 106/52 L 02/07/18 12:00 Pulse Ox 91 L 02/07/18 12:00 I&O - Last 24 Hours: Intake & Output 02/06/18 02/07/18 02/07/18 22:59 06:59 14:59 Intake Total 1370 700 Output Total 350 550 Balance 1020 150 Lab Results Last 24 Hrs: Laboratory Results - last 24 hr 02/07/18 02/07/18 Range/Units 05:07 05:07 Hgb 10.9 L (12.0-16.0) g/dL Hct 33.7 L (36.0-46.0) % Sodium 137 (136-145) mmol/L Potassium 3.9 (3.5-5.1) mmol/L Chloride 103 (98-107) mmol/L Carbon Dioxide 26.9 (21.0-32.0) mmol/L BUN 16 (7.0-18.0) mg/dL Creatinine 0.8 (0.6-1.0) mg/dL Est Cr Clr Drug Dosing 65.38 mL/min Estimated GFR (MDRD) > 60.0 ml/min Glucose 105 (74-106) mg/dL Calcium 8.3 L (8.5-10.1) mg/dL Med Orders - Current: Current Medications Hydrocodone Bitart/Acetaminophen (Correll 325-5 Mg) 1 - 2 tab PO Q4H PRN PRN Reason: Pain Last Admin: 02/07/18 14:23 Dose: 2 tab Al Hydroxide/Mg Hydroxide (Mag-Al Plus) 30 ml PO Q4H PRN PRN Reason: indigestion Aspirin (Aspirin) 325 mg PO BID [facility] Last Admin: 02/07/18 08:05 Dose: 325 mg Atorvastatin Calcium (Lipitor) 10 mg PO DAILY [facility] Last Admin: 02/07/18 08:04 Dose: 10 mg Bisacodyl (Dulcolax) 10 mg RECTAL DAILY PRN PRN Reason: Constipation Carvedilol (Coreg) 25 mg PO BID [facility] Last Admin: 02/07/18 08:05 Dose: 25 mg Celecoxib (Celebrex) 200 mg PO BID [facility] Last Admin: 02/07/18 08:05 Dose: 200 mg Docusate Sodium (Colace) 100 mg PO BID [facility] Last Admin: 02/07/18 08:04 Dose: 100 mg Famotidine (Pepcid) 40 mg IVPUSH ONARRIVE [facility] Last Admin: 02/05/18 11:01 Dose: 40 mg Famotidine (Pepcid) 40 mg PO DAILY [facility] Last Admin: 02/07/18 08:04 Dose: 40 mg Fluoxetine HCl (Prozac) 40 mg PO BID [facility] Last Admin: 02/07/18 08:05 Dose: 40 mg Furosemide (Lasix) 20 - 40 mg PO DAILY [facility] Last Admin: 02/07/18 08:05 Dose: 40 mg Acetaminophen 1,000 mg/ Premix 100 mls @ 400 mls/hr IV ONARRIVE [facility] Last Infusion: 02/05/18 11:17 Dose: Infused Ropivacaine 49.25 ml/Ketorolac Tromethamine 30 mg/Epinephrine HCl 0.5 mg/ Clonidine HCl 80 mcg/ Sodium Chloride 100 mls @ 50 mls/sec INJECT ASDIRECTED [facility] Tranexamic Acid 4,000 mg/ (Sodium Chloride) 140 mls @ 600 mls/hr IV ASDIRECTED [facility] Lactated Ringer's (Ringers, Lactated) 1,000 mls @ 20 mls/hr IV ASDIRECTED [facility] Last Admin: 02/05/18 21:00 Dose: 20 mls/hr Ketorolac Tromethamine (Toradol) 30 mg IVPUSH ONARRIVE [facility] Last Admin: 02/05/18 11:01 Dose: 30 mg Morphine Sulfate (Morphine) 1 - 3 mg IVPUSH Q3H PRN PRN Reason: Pain Last Admin: 02/06/18 20:15 Dose: 3 mg Multivitamins/Minerals (Thera M Plus) 1 tab PO ASDIRECTED [facility] Ondansetron HCl (Zofran) 4 mg IV Q6HR PRN PRN Reason: NAUSEA/VOMITING Oxycodone HCl (Oxycontin) 10 mg PO ONARRIVE [facility] Last Admin: 02/05/18 11:01 Dose: 10 mg Psyllium Husk (Metamucil Sugar Free) 1 pkt PO ASDIRECTED PRN PRN Reason: Constipation Scopolamine (Transderm-Scop) 1.5 mg TRDERM ONARRIVE [facility] Last Admin: 02/05/18 11:00 Dose: 1.5 mg Sodium Chloride (Saline Flush) 10 ml FLUSH ASDIRECTED PRN PRN Reason: Keep Vein Open Sodium Chloride (Saline Flush) 2.5 ml FLUSH ASDIRECTED PRN PRN Reason: Keep Vein Open Discontinued Medications Etomidate (Amidate) Confirm Administered Dose 40 mg IVPUSH .STK-MED ONE Stop: 02/05/18 11:26 Fentanyl (Sublimaze) Confirm Administered Dose 100 mcg .ROUTE .STK-MED ONE Stop: 02/05/18 11:25 Fentanyl (Sublimaze) Confirm Administered Dose 250 mcg .ROUTE .STK-MED ONE Stop: 02/05/18 11:25 Fluoxetine HCl (Prozac) 80 mg PO DAILY [facility] Last Admin: 02/06/18 08:49 Dose: 40 mg Clindamycin Phosphate 900 mg/ (Premix) 50 mls @ 100 mls/hr IV ONCALL [facility] Last Admin: 02/05/18 11:29 Dose: 100 mls/hr Lactated Ringer's (Ringers, Lactated) 1,000 mls @ 100 mls/hr IV ASDIRECTED [facility] Last Admin: 02/05/18 10:42 Dose: 100 mls/hr Acetaminophen 1,000 mg/ Premix 100 mls @ 400 mls/hr IV Q6H [facility] Stop: 02/06/18 05:14 Last Admin: 02/06/18 04:55 Dose: 400 mls/hr Acetaminophen (Ofirmev) Confirm Administered Dose 100 mls @ as directed IV .STK- MED ONE Stop: 02/05/18 15:37 Clindamycin Phosphate 900 mg/ (Premix) 50 mls @ 100 mls/hr IV Q8H [facility] Stop: 02/06/18 07:29 Last Admin: 02/06/18 06:13 Dose: 100 mls/hr Ketorolac Tromethamine (Toradol) 30 mg IVPUSH Q6H [facility] Stop: 02/06/18 05:00 Last Admin: 02/06/18 04:55 Dose: 30 mg Lidocaine (Xylocaine-Mpf 2%) Confirm Administered Dose 10 ml .ROUTE .STK-MED ONE Stop: 02/05/18 11:25 Midazolam HCl (Versed 1 Mg/Ml) Confirm Administered Dose 2 mg .ROUTE .STK-MED ONE Stop: 02/05/18 11:25 Morphine Sulfate (Morphine Business Practices Officer 30 Mg In 30 Ml) 30 mg IV ASDIRECTED [facility]; Protocol Last Admin: 02/05/18 14:15 Dose: 30 mg Ondansetron HCl (Zofran) Confirm Administered Dose 4 mg .ROUTE .STK-MED ONE Stop: 02/05/18 11:26 Oxycodone HCl (Oxycodone) 5 - 10 mg PO Q4H PRN PRN Reason: Pain Stop: 02/06/18 08:00 Last Admin: 02/06/18 06:13 Dose: 5 mg Oxycodone HCl (Oxycontin) 10 mg PO Q12HR [facility] Last Admin: 02/05/18 20:56 Dose: 10 mg Oxycodone/Acetaminophen (Percocet 325-5 Mg) 1 - 2 tab PO Q4H PRN PRN Reason: Pain Propofol (Diprivan 20 Ml) Confirm Administered Dose 400 mg .ROUTE .STK-MED ONE Stop: 02/05/18 11:25 Tranexamic Acid (Cyklokapron) Confirm Administered Dose 4,000 mg .ROUTE .STK- MED ONE Stop: 02/05/18 07:23 - My Orders Last 24 Hours: Active Orders 24 hr Category Date Time Status Admission Status [Patient Status] [ADT] Routine ADT 02/06/18 14:16 Active Ready for Discharge [RC] PER UNIT ROUTINE Care 02/07/18 14:49 Ordered Physician In Private Practice Discontinue [Cardiac Monitoring Care 02/07/18 12:28 Active Discontinue] [RC] Click to Edit Telemetry Monitoring [Cardiac Monitoring] [RC] Q8H Care 02/06/18 15:06 Active HEMOGLOBIN/HEMATOCRIT,HH [HEME] DAILY Lab 02/08/18 06:00 Ordered FLUoxetine [PROzac] Med 02/06/18 21:00 Active 40 mg PO BID Medication Orders Hydrocodone Bitart/Acetaminophen (Correll 325-5 Mg) 1 - 2 tab PO Q4H PRN PRN Reason: Pain Last Admin: 02/07/18 14:23 Dose: 2 tab Admin: 02/07/18 10:30 Dose: 2 tab Admin: 02/07/18 06:54 Dose: 2 tab Admin: 02/07/18 02:08 Dose: 2 tab Admin: 02/06/18 16:45 Dose: 2 tab Admin: 02/06/18 12:22 Dose: 2 tab Admin: 02/06/18 08:50 Dose: 2 tab Al Hydroxide/Mg Hydroxide (Mag-Al Plus) 30 ml PO Q4H PRN PRN Reason: indigestion Aspirin (Aspirin) 325 mg PO BID [facility] Last Admin: 02/07/18 08:05 Dose: 325 mg Admin: 02/06/18 20:24 Dose: 325 mg Admin: 02/06/18 08:50 Dose: 325 mg Atorvastatin Calcium (Lipitor) 10 mg PO DAILY [facility] Last Admin: 02/07/18 08:04 Dose: 10 mg Admin: 02/06/18 08:49 Dose: 10 mg Bisacodyl (Dulcolax) 10 mg RECTAL DAILY PRN PRN Reason: Constipation Carvedilol (Coreg) 25 mg PO BID [facility] Last Admin: 02/07/18 08:05 Dose: 25 mg Admin: 02/06/18 20:25 Dose: 25 mg Admin: 02/06/18 08:51 Dose: 25 mg Admin: 02/05/18 20:52 Dose: 25 mg Celecoxib (Celebrex) 200 mg PO BID [facility] Last Admin: 02/07/18 08:05 Dose: 200 mg Admin: 02/06/18 20:25 Dose: 200 mg Admin: 02/06/18 08:50 Dose: 200 mg Docusate Sodium (Colace) 100 mg PO BID [facility] Last Admin: 02/07/18 08:04 Dose: 100 mg Admin: 02/06/18 20:24 Dose: 100 mg Admin: 02/06/18 08:50 Dose: 100 mg Admin: 02/05/18 20:52 Dose: 100 mg Famotidine (Pepcid) 40 mg IVPUSH ONARRIVE [facility] Last Admin: 02/05/18 11:01 Dose: 40 mg Famotidine (Pepcid) 40 mg PO DAILY [facility] Last Admin: 02/07/18 08:04 Dose: 40 mg Admin: 02/06/18 08:49 Dose: 40 mg Fluoxetine HCl (Prozac) 40 mg PO BID [facility] Last Admin: 02/07/18 08:05 Dose: 40 mg Admin: 02/06/18 20:24 Dose: 40 mg Furosemide (Lasix) 20 - 40 mg PO DAILY [facility] Last Admin: 02/07/18 08:05 Dose: 40 mg Admin: 02/06/18 08:50 Dose: 40 mg Acetaminophen 1,000 mg/ Premix 100 mls @ 400 mls/hr IV ONARRIVE [facility] Last Infusion: 02/05/18 11:17 Dose: 400 mls/hr Admin: 02/05/18 11:02 Dose: 400 mls/hr Ropivacaine 49.25 ml/Ketorolac Tromethamine 30 mg/Epinephrine HCl 0.5 mg/ Clonidine HCl 80 mcg/ Sodium Chloride 100 mls @ 50 mls/sec INJECT ASDIRECTED [facility] Tranexamic Acid 4,000 mg/ (Sodium Chloride) 140 mls @ 600 mls/hr IV ASDIRECTED [facility] Lactated Ringer's (Ringers, Lactated) 1,000 mls @ 20 mls/hr IV ASDIRECTED [facility] Last Admin: 02/05/18 21:00 Dose: 20 mls/hr Ketorolac Tromethamine (Toradol) 30 mg IVPUSH ONARRIVE [facility] Last Admin: 02/05/18 11:01 Dose: 30 mg Morphine Sulfate (Morphine) 1 - 3 mg IVPUSH Q3H PRN PRN Reason: Pain Last Admin: 02/06/18 20:15 Dose: 3 mg Admin: 02/06/18 14:34 Dose: 3 mg Admin: 02/06/18 09:56 Dose: 3 mg Multivitamins/Minerals (Thera M Plus) 1 tab PO ASDIRECTED [facility] Ondansetron HCl (Zofran) 4 mg IV Q6HR PRN PRN Reason: NAUSEA/VOMITING Oxycodone HCl (Oxycontin) 10 mg PO ONARRIVE [facility] Last Admin: 02/05/18 11:01 Dose: 10 mg Psyllium Husk (Metamucil Sugar Free) 1 pkt PO ASDIRECTED PRN PRN Reason: Constipation Scopolamine (Transderm-Scop) 1.5 mg TRDERM ONARRIVE [facility] Last Admin: 02/05/18 11:00 Dose: 1.5 mg Sodium Chloride (Saline Flush) 10 ml FLUSH ASDIRECTED PRN PRN Reason: Keep Vein Open Sodium Chloride (Saline Flush) 2.5 ml FLUSH ASDIRECTED PRN PRN Reason: Keep Vein Open - Plan Plan (Free Text/Narrative):: 1100 Patient seen and examined. Agree with the above note. Patient is currently sitting up in the chair. Her pain is controlled. She is progressing with physical therapy. Her hemoglobin remained stable. VSS, afeb Dressing is dry and intact. She has no calf tenderness. AT/EHL/gastroc 02/10. Sensation grossly intact. DP/PT pulses 2+. 1. plan discharge home this afternoon 2. continue outpatient PT 3. pt agrees with plan
[2018-02-07 13:22] VITALS: BP 106/52
--- NOTE | 2018-02-08 09:27 | PCM.SN ---
- Free Text/Narrative Note: d/ch summary #[id number]
--- NOTE | 2018-02-08 12:06 | DISCH ---
DATE OF DISCHARGE: 02/07/2018 PRIMARY CARE PHYSICIAN: Fawad Hall MD ADMITTING DIAGNOSIS: Degenerative joint disease, left knee, tricompartmental. OTHER MEDICAL DIAGNOSES: 1. Hypertension. 2. Obstructive sleep apnea. 3. Dyslipidemia. 4. Diastolic heart failure with idiopathic subaortic hypertrophic stenosis. DISCHARGE DIAGNOSES: 1. Degenerative joint disease, left knee, tricompartmental. 2. Hypertension. 3. Obstructive sleep apnea. 4. Dyslipidemia. 5. Diastolic heart failure with idiopathic subaortic hypertrophic stenosis. 6. Acute posthemorrhagic anemia. BRIEF HISTORY: Dee Dee is a 57-year-old female who has had progressive complaints of left knee pain. She has tried and failed conservative treatment. She has previously undergone a right total knee arthroplasty and is doing well with that. At that time, surgical treatment was recommended for her left knee. On February 05 2018, the patient underwent a left total knee arthroplasty using patient-specific instrumentation done by Dr. Maria Esther Gaytan. This was done under general anesthesia. ESTIMATED BLOOD LOSS: 50 mL. TOURNIQUET TIME: 48 minutes. Upon completion of the procedure, the patient was transferred to the PACU and subsequently med/surg for postoperative care. HOSPITAL COURSE: Postoperatively, the patient was found to have some respiratory depression with the postoperative narcotics. She was kept in the ICU for monitoring. This did improve. The hospitalist service followed her through her hospital stay. Her pain was controlled with a combination of oral and IV pain medications. We did minimize the use of her narcotics because of her respiratory depression. Physical therapy followed her through her hospital stay. Aspirin 325 mg was started on postoperative day #1 as DVT prophylaxis. Her vital signs have been stable. She has been afebrile. Her hemoglobin on the morning of February 07 was 10.9. She feels comfortable with discharge to home. DISCHARGE MEDICATIONS: 1. [place] 5/325. 2. Celebrex 200 mg. 3. Colace 100 mg. 4. Aspirin 325 mg. DISCHARGE INSTRUCTIONS: 1. Follow up in clinic in 10 to 14 days after the procedure. This appointment has been made for the patient. 2. Physical therapy 2 or 3 times per week for 4 to 6 weeks. 3. ANGEL hose, on in the morning, off in the evening. 4. Polar Care to the left knee as needed. 5. She should change her dressing on Sunday, February 11, 2018. She should place a new Aquacel dressing and leave that in place until followup. 6. For complete medication reconciliation and discharge instructions, please refer back to the patient's EHR. 7. Should she have questions or concerns prior to followup, she has been advised to return to clinic or call. FRANCA CHRISTINE /[id number]
== END 2018-02-07 15:10 | disposition home or self-care (01) | DRG 302 ==
LOC: MW.SDS 10:21 → MW.ICU 17:01 → MW.MS 02-06 16:15
PROVIDERS: ADMIT Orthopaedic Surgery; ATTEND Orthopaedic Surgery
PROC: 0SRD0J9 Replacement of Left Knee Joint with Synthetic Substitute, Cemented, Open Approach (ICD-10-PCS; principal; 2018-02-05)
DX: M17.12 Unilateral primary osteoarthritis, left knee (principal); M94.262 Chondromalacia, left knee; M25.762 Osteophyte, left knee; R06.89 Other abnormalities of breathing; I10 Essential (primary) hypertension; E78.5 Hyperlipidemia, unspecified; I50.30 Unspecified diastolic (congestive) heart failure; G47.33 Obstructive sleep apnea (adult) (pediatric); F41.8 Other specified anxiety disorders; Q24.8 Other specified congenital malformations of heart; Z88.0 Allergy status to penicillin; Z79.899 Other long term (current) drug therapy
CPT/HCPCS: 36415; 73560-26-LT; 73560-LT; 80048; 85014; 85018; 86850; 86900; 86901; 88304; 88311; 97110-GP; 97116-GP; 97161-GP; 97530-GP; A9270-GY; C1776; J1885; J2250; J2270; J2274; J2405; J2704; J3010; J7120

== ENCOUNTER 2020-11-10 06:29 | Day surgery (SDC) | payer BC ==
[~2020-11-10 06:29] MED LIST changes: -Clindamycin Phosphate in D5W 900 MG in Premix Bag 1 BAG IV SCH; -Famotidine 20 MG/2 ML SDV IVPUSH SCH; -Lactated Ringers 1,000 ML IV SCH; -Ropivacaine 49.25 ML, Ketorolac 30 MG, EPINEPHrine 0.5 MG, cloNIDine 80 MCG in Sodium C... INJECT SCH; -Scopolamine 1.5 MG Transdermal Patch TRDERM SCH; +Sodium Chloride 0.9% 2.5 ML Syringe FLUSH PRN; -Tranexamic Acid 4,000 MG in Sodium Chloride 0.9% 100 ML IV SCH; -oxyCODONE ER 10 MG TAB.ER PO SCH
[2020-11-10] MEDS ORDERED: Clindamycin Phosphate in D5W 50 ML ONE (06:33)
[2020-11-10] MEDS ORDERED: Midazolam 1 MG/ML 2 ML SDV ONE (06:46)
[2020-11-10] MEDS ORDERED: Propofol 200 MG/20 ML SDV ONE (06:46)
[2020-11-10] MEDS ORDERED: Desflurane 240 ML Bottle ONE (06:46)
[2020-11-10] MEDS ORDERED: fentaNYL 250 MCG/5 ML SDV ONE (06:46)
[2020-11-10] MEDS ORDERED: Dexamethasone 4 MG/ML 5 ML MDV ONE (06:48)
[2020-11-10] MEDS ORDERED: Etomidate 2 MG/ML 20 ML SDV IVPUSH ONE (06:48)
[2020-11-10] MEDS ORDERED: Ondansetron 4 MG/2 ML SDV ONE (06:48)
[2020-11-10] MEDS ORDERED: Glycopyrrolate 0.2 MG/ML SDV ONE ×2 (06:48→08:25)
[2020-11-10] MEDS ORDERED: Lidocaine 2% 5 ML SDV ONE (06:48)
[2020-11-10] MEDS ORDERED: Phenylephrine 1% 10 MG/ML SDV ONE (06:53)
[2020-11-10] MEDS ORDERED: Lactated Ringers 1,000 ML IV SCH (07:00)
[2020-11-10] MEDS ORDERED: Sodium Chloride 0.9% 10 ML Syringe FLUSH PRN (07:00)
[2020-11-10] MEDS ORDERED: Sodium Chloride 0.9% 10 ML SDV IV PRN (07:00)
[2020-11-10] MEDS ORDERED: Bupivacaine 0.5% 30 ML SDV ONE (07:28)
--- NOTE | 2020-11-10 07:54 | PCM.PREANE ---
Preanesthetic Assessment - Anesthesia/Transfusion/Family Hx Anesthesia History: Prior Anesthesia Reaction Other Type of Anesthesia Reaction Comment: last TKA- admitted to ICU overnight because of somnolence Family History of Anesthesia Reaction: No Transfusion History: No Prior Transfusion(s) Intubation History: Unknown - Review of Systems General: No Symptoms Pulmonary: Other (laura) Cardiovascular: No Symptoms Gastrointestinal: No Symptoms Neurological: No Symptoms Other: Reports: None - Physical Assessment NPO Status Date: 11/09/20 Vital Signs: Last Vital Signs Temp 95.9 F L 11/10/20 06:46 Pulse 67 11/10/20 06:46 Resp 16 11/10/20 06:46 BP 145/68 H 11/10/20 06:46 Pulse Ox 94 L 11/10/20 06:46 Height: 5 ft 4 in Weight: 107.048 kg ASA Class: 3 Mental Status: Alert & Oriented x3 Airway Class: Mallampati = 3 Dentition: Reports: Normal Dentition ROM/Head Extension: Full Lungs: Normal Respiratory Effort Cardiovascular: Regular Rate - Allergies Allergies/Adverse Reactions: Allergies Allergy/AdvReac Type Severity Reaction Status Date / Time adhesive Allergy Rash Verified 11/10/20 06:52 Latex, Natural Rubber Allergy Rash Verified 11/10/20 06:52 Penicillins Allergy Rash Verified 11/10/20 06:52 - Anesthesia Plan Pre-Op Medication Ordered: None - Acknowledgements Anesthesia Type Planned: General Anesthesia Pt an Appropriate Candidate for the Planned Anesthesia: Yes Alternatives and Risks of Anesthesia Discussed w Pt/Guardian: Yes Pt/Guardian Understands and Agrees with Anesthesia Plan: Yes Additional Comments: pmh: laura, [place], , MR,gerd, htn PLAN: get PreAnesthesia Questionnaire HEENT History: Reports: Hard of Hearing, Other (See Below) Other HEENT History: wears glasses, glen hearing aids Cardiovascular History: Reports: Blood Clots/VTE/DVT, Heart Murmur, High Cholesterol, Hypertension Other Cardiovascular History: hx of IHSS- Idiopathic Hypertropic Subaortic Stenosis, questional dx of DVT or Superficial blood clot in leg- said had pain and swelling in left leg and had to take "shots" Respiratory History: Reports: Sleep Apnea, SOB Other Respiratory History: uses CPAP Gastrointestinal History: Reports: GERD, Irritable Bowel Syndrome Other Gastrointestinal History: not currently takein medication Genitourinary History: Reports: None Musculoskeletal History: Reports: Arthritis, Back Pain, Chronic Other Musculoskeletal History: DJD Neurological History: Reports: Vertigo, Other (See Below) Other Neuro History: hx of motion sickness Psychiatric History: Reports: Anxiety, Depression Endocrine/Metabolic History: Reports: Obesity/BMI 30+ Hematologic History: Reports: None Immunologic History: Reports: None Oncologic (Cancer) History: Reports: None Dermatologic History: Reports: Other (See Below) Other Dermatologic History: currently has a "cold sore" under her nose - Infectious Disease History Infectious Disease History: Reports: None - Past Surgical History Head Surgeries/Procedures: Reports: None HEENT Surgical History: Reports: Adenoidectomy, Myringotomy w Tube(s), Tonsillectomy GI Surgical History: Reports: Colonoscopy Musculoskeletal Surgical History: Reports: Knee Replacement, Other (See Below) Other Musculoskeletal Surgeries/Procedures:: bilateral total knee arthroplasties, removal of bone in left foot - SUBSTANCE USE Tobacco Use Status *Q: Never Tobacco User Recreational Drug Use History: No - HOME MEDS Home Medications: Home Meds atorvaSTATin [Lipitor] 10 mg PO DAILY 01/31/15 [History] carvediloL [Carvedilol] 25 mg PO BID 01/31/15 [History] FLUoxetine HCl [Fluoxetine HCl] 40 mg PO DAILY 07/31/17 [History] Furosemide 40 mg PO DAILY 07/31/17 [History] Cholecalciferol (Vitamin D3) [Vitamin D3] 1,000 unit PO DAILY 11/04/20 [History] Cyanocobalamin (Vitamin B12) [Vitamin B12] 100 mcg PO DAILY 11/04/20 [History] Latanoprost/Pf [Latanoprost 0.005% Eye Drop] 1 drop EYEBOTH BEDTIME 11/04/20 [History] Lysine 500 mg PO DAILY PRN 11/04/20 [History] Zinc 50 mg PO DAILY 11/04/20 [History] lisinopriL [Lisinopril] 10 mg PO QAM 11/04/20 [History] - CURRENT (IN HOUSE) MEDS Current Meds: Current Medications Lactated Ringer's (Ringers, Lactated) 1,000 mls @ 125 mls/hr IV ASDIRECTED MANNY Last Admin: 11/10/20 06:56 Dose: 125 mls/hr Documented by: Sodium Chloride (Normal Saline) 10 ml IV ASDIRECTED PRN PRN Reason: IV Use Sodium Chloride (Saline Flush) 10 ml FLUSH ASDIRECTED PRN PRN Reason: Keep Vein Open Sodium Chloride (Saline Flush) 2.5 ml FLUSH ASDIRECTED PRN PRN Reason: Keep Vein Open Discontinued Medications Bupivacaine HCl (Marcaine 0.5%) Confirm Administered Dose 30 ml .ROUTE .STK-MED ONE Stop: 11/10/20 07:29 Desflurane (Suprane) Confirm Administered Dose 480 ml .ROUTE .STK-MED ONE Stop: 11/10/20 06:47 Dexamethasone (Dexamethasone) Confirm Administered Dose 20 mg .ROUTE .STK-MED ONE Stop: 11/10/20 06:49 Etomidate (Amidate) Confirm Administered Dose 40 mg IVPUSH .STK-MED ONE Stop: 11/10/20 06:49 Fentanyl (Sublimaze) Confirm Administered Dose 250 mcg .ROUTE .STK-MED ONE Stop: 11/10/20 06:47 Glycopyrrolate (Robinul) Confirm Administered Dose 0.4 mg .ROUTE .STK-MED ONE Stop: 11/10/20 06:49 Clindamycin Phosphate 600 mg/ (Sodium Chloride) 54 mls @ 100 mls/hr IV ONETIME ONE Stop: 11/10/20 07:32 Clindamycin Phosphate (Cleocin In D5w 600 Mg/50 Ml) Confirm Administered Dose 50 mls @ as directed .ROUTE .STK-MED ONE Stop: 11/10/20 06:34 Last Admin: 11/10/20 07:29 Dose: 50 mls/hr Documented by: Lidocaine (Xylocaine-Mpf 2%) Confirm Administered Dose 5 ml .ROUTE .STK-MED ONE Stop: 11/10/20 06:49 Midazolam HCl (Versed 1 Mg/Ml) Confirm Administered Dose 2 mg .ROUTE .STK-MED ONE Stop: 11/10/20 06:47 Ondansetron HCl (Zofran) Confirm Administered Dose 4 mg .ROUTE .STK-MED ONE Stop: 11/10/20 06:49 Phenylephrine HCl (Rohith-Synephrine) Confirm Administered Dose 10 mg .ROUTE .STK- MED ONE Stop: 11/10/20 06:54 Propofol (Diprivan 20 Ml) Confirm Administered Dose 200 mg .ROUTE .STK-MED ONE Stop: 11/10/20 06:47
[2020-11-10] MEDS ORDERED: ePHEDrine 50 MG/ML SDV ONE (08:12)
[2020-11-10] MEDS ORDERED: fentaNYL 100 MCG/2 ML SDV IVPUSH PRN (08:20)
[2020-11-10] MEDS ORDERED: Acetaminophen 1,000 MG in Premix Bag 1 BAG IV PRN (08:20)
[2020-11-10] MEDS ORDERED: Octyl 2-Cyanoacrylate 1 Tube ONE (08:59)
[2020-11-10] MEDS ORDERED: Sugammadex Sodium 200 MG/2 ML VIAL ONE (09:02)
[2020-11-10] MEDS ORDERED: Ketorolac 30 MG/ML SDV ONE (09:06)
--- NOTE | 2020-11-10 09:33 | PCM.OPNOTE ---
- General Post-Op/Procedure Note Date of Surgery/Procedure: 11/10/20 Operative Procedure(s): Laparoscopic appendectomy Findings: Appendix retrocecal. Tip of appendix is perforated and encased in adhesions to peritoneum and posterior right colonic mesentery. Distal half dilated. Base un-involved. Biopsies taken of the posterior mesentery tissue Pre Op Diagnosis: Appendicile abnormality Post-Op Diagnosis: same Anesthesia Technique: General ET Tube Primary Surgeon: Veda Osei Fluid Replacement, Intraop: 1,000 Output, Urine Amount: 100 EBL in mLs: 5 Condition: Good Free Text/Narrative:: Intake & Output 11/09/20 11/10/20 11/10/20 22:59 06:59 14:59 Output Total 100 Balance -100
[2020-11-10 10:41] VITALS: BP 119/59; PULSE 64
--- NOTE | 2020-11-10 11:35 | PCM48HPAN ---
Post Anesthesia Note - EVALUATION WITHIN 48HRS OF ANESTHETIC Vital Signs in Normal Range: Yes Patient Participated in Evaluation: Yes Respiratory Function Stable: Yes Airway Patent: Yes Cardiovascular Function Stable: Yes Hydration Status Stable: Yes Pain Control Satisfactory: Yes Nausea and Vomiting Control Satisfactory: Yes Mental Status Recovered: Yes Vital Signs: Last Vital Signs Temp 36.3 C 11/10/20 10:10 Pulse 64 11/10/20 10:40 Resp 14 11/10/20 10:40 BP 119/59 L 11/10/20 10:40 Pulse Ox 94 L 11/10/20 10:40
--- NOTE | 2020-11-10 14:53 | PCM48HPAN ---
Post Anesthesia Note - EVALUATION WITHIN 48HRS OF ANESTHETIC Vital Signs in Normal Range: Yes Patient Participated in Evaluation: Yes Respiratory Function Stable: Yes Airway Patent: Yes Cardiovascular Function Stable: Yes Hydration Status Stable: Yes Pain Control Satisfactory: Yes Nausea and Vomiting Control Satisfactory: Yes Mental Status Recovered: Yes Vital Signs: Last Vital Signs Temp 97.3 F 11/10/20 10:10 Pulse 64 11/10/20 11:30 Resp 15 11/10/20 11:30 BP 119/59 L 11/10/20 11:30 Pulse Ox 94 L 11/10/20 11:30
--- NOTE | 2020-11-11 14:16 | OR ---
SURGEON: VEDA OSEI MD DATE OF PROCEDURE: 11/10/2020 PREOPERATIVE DIAGNOSIS: Appendiceal abnormality. POSTOPERATIVE DIAGNOSIS: Appendiceal abnormality. PROCEDURE PERFORMED: Laparoscopic appendectomy and biopsy. PRIMARY SURGEON: Veda Osei MD ANESTHESIA: General endotracheal anesthesia. FLUIDS: 1000 mL of crystalloid. ESTIMATED BLOOD LOSS: 5 mL. URINE OUTPUT: 100 mL. FINDINGS: Appendix, which appeared dilated along the distal half. The tip of the appendix was ruptured. It is unclear if this was due to tip appendicitis or another pathology. The appendix was retrocecal. Biopsy was taken of the area of rupture on the posterior aspect of the right colonic mesentery. COMPLICATIONS: None. INDICATIONS: The patient is a 60-year-old female who came to my office with various abdominal complaints. A CT scan was performed. This showed a dilated appendix. The appendix appeared dilated along the distal half and there was some inflammatory stranding suggesting potential early appendicitis. Overall, the patient was asymptomatic and was not showing signs of an acute infection. The patient and I discussed her various options. In the end, we decided to perform an appendectomy. I explained the procedure to the patient, and I will be up performing it laparoscopically. If I was unable to perform it safely laparoscopically, I would convert to open. We also discussed the potential of this being an infectious process versus a malignant process and the need in the future for further surgery should this be malignant. The patient and I went through all the risks of the procedure as well. She verbalized understanding and wishes to proceed. PROCEDURE IN DETAIL: The patient was brought into the OR and placed on the OR table in supine position. A time-out was completed verifying the patient's name, age, date of , allergies, and procedure to be performed. General endotracheal anesthesia was induced. The left arm was tucked to the patient's side and a Mchugh catheter placed. The abdomen was prepped and draped in usual standard fashion. I anesthetized an area 2 fingerbreadths below the left subcostal margin in the midclavicular line with 0.5% Marcaine plain. An 11 blade was used to make an incision in this area. A 5 mm optical trocar was used to gain entry into the left upper quadrant under direct visualization. All layers of the abdominal wall were visualized upon entry. The abdomen was insufflated with carbon dioxide and a 5 mm, 30-degree scope was inserted into the abdomen. No damage to surrounding structures was noted. A 5 mm trocar was placed just left and lateral to the umbilicus and a 12 mm trocar was placed along the lower midline under direct visualization. The patient was placed into Trendelenburg position and airplaned slightly to the left. I identified the ascending colon. I followed the tenia down to the cecum. I immediately identified the base of the appendix. The body of the appendix appeared to be retrocecal. I rotated the cecum medially. I noted that the tip of the appendix was encased in some adhesions to the posterior peritoneum. These were taken down bluntly using suction. I then noticed that the tip of the appendix appeared ruptured. There was no purulent material noted. The tip of the ruptured appendix was also adhered to the posterior mesentery of the ascending colon. This was taken down using blunt dissection. Once the appendix was freed from its attachments, it was brought anterior to the colon (it was located retrocecal). I grasped some of the necrotic appearing tissue still attached to the posterior mesentery of the ascending colon, elevated it and resected it using a Harmonic scalpel device. This was sent to pathology, labeled as mesenteric biopsy. I turned my attention to the appendix. I grasped the body of the appendix. I began my dissection of the appendical mesentery using a harmonic scalpel. A cuff of mesentery was left with the appendiceal body. I dissected from the distal edge of the appendical mesentery to the proximal mesentery close to the base of the appendix. Using a [place] device, I created a window between the base of the appendix and the cecum. I then continued my dissection with the harmonic up to this window. Once the base of the appendix was free from the surrounding tissue, I stapled and transected across it using a 45 mm blue load of vaibhav with an endoscopic stapling device. The appendix was then placed in an Endo Catch bag and removed through the 12 mm port site. I then took a photograph of the staple line as well as where the appendix had been and my cut edge of the appendiceal mesentery. I irrigated the area with normal saline and suctioned this out. I then inspected the rest of the abdomen. Photographs were taken multiple times during the procedure. I then took photographs of the right upper quadrant, left upper quadrant, and the pelvis. No other abnormalities were seen. I closely inspected the peritoneum and saw no evidence of any peritoneal implants. The 12 mm trocar was removed, and I irrigated the trocar site with normal saline and suctioned this out. The trocar site was then closed with an interrupted 0 Vicryl suture using a Fabio-Jeremiah device. I irrigated my 5 mm trocar sites and removed these under direct visualization as well. The abdomen was allowed to desufflate. I then closed the subcutaneous fat layer at the 12 mm trocar site with interrupted 3-0 Vicryl sutures. The skin was closed with a running 4- 0 Monocryl stitch. My 5 mm trocar sites were then closed with interrupted 4-0 Monocryl sutures. Dermabond and sterile dressings were applied. The patient was extubated and taken to PACU in stable condition. There were no immediate complications during the case. All counts were complete and correct at the end of the case. MANISHA / NANCI /[id number] MTDD
== END 2020-11-10 12:00 | disposition home or self-care (01) ==
LOC: MW.SDS 06:29
PROVIDERS: ATTEND Surgery
DX: K36 Other appendicitis (principal); K38.8 Other specified diseases of appendix; I10 Essential (primary) hypertension; E78.5 Hyperlipidemia, unspecified; K21.9 Gastro-esophageal reflux disease without esophagitis; E78.00 Pure hypercholesterolemia, unspecified; G47.33 Obstructive sleep apnea (adult) (pediatric); E66.9 Obesity, unspecified; Z88.0 Allergy status to penicillin; Z79.899 Other long term (current) drug therapy; Z98.890 Other specified postprocedural states; Z91.040 Latex allergy status; Z68.41 Body mass index [BMI] 40.0-44.9, adult
CPT/HCPCS: 44970; 88304; 88305; A9270; J1100; J1885; J2250; J2370; J2405; J2704; J3010; J3490; J7120; 00840; J2001

== ENCOUNTER 2022-09-22 10:29 | Day surgery (SDC) | payer BC ==
[~2022-09-22 10:29] MED LIST changes: +Lactated Ringers 1,000 ML IV SCH; +Propofol 200 MG/20 ML SDV ONE; +Sodium Chloride 0.9% 10 ML Syringe FLUSH PRN; +Sodium Chloride 0.9% 20 ML SDV IV PRN
[2022-09-22] MEDS ORDERED: Glucagon,Human Recombinant 1 MG Vial ONE (12:00)
[2022-09-22] MEDS ORDERED: Glycopyrrolate 0.2 MG/ML SDV ONE (12:01)
[2022-09-22] MEDS ORDERED: ceFAZolin 1 GM Vial ONE (12:04)
[2022-09-22 12:35] VITALS: BP 118/49; PULSE 61
== END 2022-09-22 13:20 | disposition home or self-care (01) ==
LOC: MW.SDS 10:29
PROVIDERS: ATTEND Surgery
DX: Z12.11 Encounter for screening for malignant neoplasm of colon (principal); D12.5 Benign neoplasm of sigmoid colon; J30.9 Allergic rhinitis, unspecified; F32.A Depression, unspecified; F41.9 Anxiety disorder, unspecified; E78.5 Hyperlipidemia, unspecified; I10 Essential (primary) hypertension; E78.00 Pure hypercholesterolemia, unspecified; K58.9 Irritable bowel syndrome, unspecified; G47.33 Obstructive sleep apnea (adult) (pediatric); M19.90 Unspecified osteoarthritis, unspecified site; E66.9 Obesity, unspecified; Z68.39 Body mass index [BMI] 39.0-39.9, adult; Z91.048 Other nonmedicinal substance allergy status; Z86.010 Personal history of colon polyps; Z88.0 Allergy status to penicillin; Z91.040 Latex allergy status; Z79.899 Other long term (current) drug therapy; Z98.890 Other specified postprocedural states; Z90.49 Acquired absence of other specified parts of digestive tract
CPT/HCPCS: 45380; J0690; J2704; J3490; J7120; 00812; J1610

== ENCOUNTER 2024-11-14 11:31 | Inpatient (IN) | payer BC ==
[2024-11-14 12:09] LABS: BASOPHILS ABSOLUTE AUTO 0.02 K/uL (0.00-0.20); BASOPHILS PERCENT AUTO 0.4 % (0.0-1.0); HEMOGLOBIN 11.5 g/dL (12.0-16.0); LYMPHOCYTES ABSOLUTE AUTO 1.01 K/uL (1.00-4.80); LYMPHOCYTES PERCENT AUTO 20.8 % (24.0-44.0); MEAN CORPUSCULAR HGB CONC 32.9 g/dL (32.0-36.0); MEAN CORPUSCULAR VOLUME 88.4 fL (83.0-99.0); MONOCYTES ABSOLUTE AUTO 0.74 K/uL (0.00-0.80); MONOCYTES PERCENT AUTO 15.3 % (0.0-8.0); NEUTROPHILS ABSOLUTE AUTO 3.08 K/uL (1.80-7.70); NEUTROPHILS PERCENT AUTO 63.5 % (41.0-71.0); PLATELET COUNT,PLT 175 K/uL (150-400); RED BLOOD CELL COUNT 3.96 M/uL (4.10-5.30); WHITE BLOOD CELL COUNT,WBC 4.85 K/uL (3.9-11.3)
[2024-11-14] MEDS: methylPREDNISolone Sodium Succinate 125 MG/2 ML SDV IVPUSH ONE (12:31)
[2024-11-14] MEDS: Sodium Chloride 0.9% 1,000 ML IV ONE (12:31)
[2024-11-14 12:38] LABS: LACTIC ACID 0.5 mmol/L (0.4-2.0)
[2024-11-14 12:42] LABS: A/G RATIO 0.9 (0.9-1.6); ALBUMIN 3.3 g/dL (3.4-5.0); BILIRUBIN TOTAL 0.5 mg/dL (0.2-1.0); CALCIUM 8.6 mg/dL (8.5-10.1); CREATININE 0.9 mg/dL (0.6-1.0); EST CRCL DRUG DOSING (CG) 55.33 mL/min; MAGNESIUM 1.6 mg/dL (1.8-2.4); POTASSIUM,K 3.6 mmol/L (3.5-5.1)
[2024-11-14 13:58] LABS: CORONAVIRUS COVID-19 NAA NEGATIVE (NEGATIVE); INFLUENZA A NAA POSITIVE (NEGATIVE); INFLUENZA B NAA NEGATIVE (NEGATIVE); RESPIRATORY SYNCYTIAL VIR NAA NEGATIVE (NEGATIVE)
[2024-11-14] MEDS: Oseltamivir 75 MG Cap PO ONE (14:23)
[2024-11-14] MEDS ORDERED: Ondansetron 4 MG Tab.DIS PO PRN (16:09)
[2024-11-14] MEDS ORDERED: Polyethylene Glycol 3350 Powder 17 GM Packet PO PRN (16:09)
[2024-11-14] MEDS ORDERED: Sennosides/Docusate Sodium 50-8.6 MG Tab PO PRN (16:09)
[2024-11-14] MEDS ORDERED: Albuterol/Ipratropium 3.0-0.5 MG/3 ML Neb Soln NEB PRN (16:09)
[2024-11-14] MEDS ORDERED: Acetaminophen 325 MG Tab PO PRN (16:09)
[2024-11-14] MEDS: Enoxaparin 40 MG/0.4 ML Syringe SUBCUT SCH (17:24)
[2024-11-14] MEDS: Iopamidol 755 MG/ML 500 ML Multipack Bottle IVPUSH STA (17:32)
[2024-11-14] MEDS: Benzonatate 100 MG Cap PO SCH (18:25)
[2024-11-14] MEDS: guaiFENesin 600 MG Tab.ER PO SCH (18:25)
[2024-11-14] MEDS: atorvaSTATin 20 MG Tab PO SCH (21:25)
[2024-11-14] MEDS: Carvedilol 25 MG Tab PO SCH (21:25)
[2024-11-14] MEDS: Oseltamivir 75 MG Cap PO SCH (21:25)
[2024-11-14] MEDS: FLUoxetine 20 MG Cap PO SCH (21:26)
[2024-11-14] MEDS: cefTRIAXone 1 GM in Sodium Chloride 0.9% 50 ML IV SCH (23:58)
[2024-11-15 06:23] LABS: BASOPHILS ABSOLUTE AUTO 0.01 K/uL (0.00-0.20); BASOPHILS PERCENT AUTO 0.2 % (0.0-1.0); HEMATOCRIT 37.2 % (37.0-47.0); HEMOGLOBIN 12.3 g/dL (12.0-16.0); IMMATURE GRAN ABSOLUTE AUTO 0.01 K/uL (0.00-0.05); IMMATURE GRAN PERCENT AUTO 0.2 % (0.0-0.4); LYMPHOCYTES ABSOLUTE AUTO 0.97 K/uL (1.00-4.80); LYMPHOCYTES PERCENT AUTO 21.6 % (24.0-44.0); MEAN CORPUSCULAR HEMOGLOBIN 29.4 pg (28.0-32.0); MEAN CORPUSCULAR HGB CONC 33.1 g/dL (32.0-36.0); MEAN PLATELET VOLUME 11.5 fL (9.4-12.3); MONOCYTES ABSOLUTE AUTO 0.31 K/uL (0.00-0.80); MONOCYTES PERCENT AUTO 6.9 % (0.0-8.0); NEUTROPHILS ABSOLUTE AUTO 3.19 K/uL (1.80-7.70); NEUTROPHILS PERCENT AUTO 71.1 % (41.0-71.0); PLATELET COUNT,PLT 185 K/uL (150-400); RED BLOOD CELL COUNT 4.18 M/uL (4.10-5.30); WHITE BLOOD CELL COUNT,WBC 4.49 K/uL (3.9-11.3)
[2024-11-15 06:56] LABS: A/G RATIO 0.8 (0.9-1.6); ALBUMIN 3.2 g/dL (3.4-5.0); BILIRUBIN TOTAL 0.5 mg/dL (0.2-1.0); CALCIUM 8.8 mg/dL (8.5-10.1); CARBON DIOXIDE,CO2 26.2 mmol/L (21.0-32.0); CREATININE 0.9 mg/dL (0.6-1.0); EST CRCL DRUG DOSING (CG) 53.1 mL/min; POTASSIUM,K 3.7 mmol/L (3.5-5.1); PROTEIN TOTAL,TP 7.3 g/dL (6.4-8.2)
[2024-11-15] MEDS: Magnesium Sulfate/Water Premix 2 GM in Premix Bag 1 BAG IV SCH (09:05)
[2024-11-15] MEDS: Lisinopril 10 MG Tab PO SCH (09:12)
[2024-11-15] MEDS: Furosemide 40 MG/4 ML VIAL IVPUSH SCH (11:19)
[2024-11-15 11:32] LABS: MAGNESIUM 2.2 mg/dL (1.8-2.4)
[2024-11-15] MEDS: Formoterol/Mometasone 200-5 MCG 8.8 GM Inhaler INH PRN (17:01)
[2024-11-15] MEDS: Spironolactone 25 MG Tab PO SCH (21:25)
[2024-11-15] MEDS: Latanoprost 0.005% Ophth Soln 2.5 ML Bottle EYEBOTH SCH (21:26)
[2024-11-16 06:11] LABS: BASOPHILS ABSOLUTE AUTO 0.02 K/uL (0.00-0.20); BASOPHILS PERCENT AUTO 0.2 % (0.0-1.0); EOSINOPHILS ABSOLUTE AUTO 0.01 K/uL (0.00-0.45); EOSINOPHILS PERCENT AUTO 0.1 % (0.0-6.0); HEMATOCRIT 38.8 % (37.0-47.0); HEMOGLOBIN 12.9 g/dL (12.0-16.0); IMMATURE GRAN ABSOLUTE AUTO 0.01 K/uL (0.00-0.05); IMMATURE GRAN PERCENT AUTO 0.1 % (0.0-0.4); LYMPHOCYTES ABSOLUTE AUTO 2.17 K/uL (1.00-4.80); LYMPHOCYTES PERCENT AUTO 23.3 % (24.0-44.0); MEAN CORPUSCULAR HEMOGLOBIN 29.3 pg (28.0-32.0); MEAN CORPUSCULAR HGB CONC 33.2 g/dL (32.0-36.0); MEAN CORPUSCULAR VOLUME 88.2 fL (83.0-99.0); MEAN PLATELET VOLUME 11.1 fL (9.4-12.3); MONOCYTES ABSOLUTE AUTO 0.73 K/uL (0.00-0.80); MONOCYTES PERCENT AUTO 7.8 % (0.0-8.0); NEUTROPHILS ABSOLUTE AUTO 6.39 K/uL (1.80-7.70); NEUTROPHILS PERCENT AUTO 68.5 % (41.0-71.0); PLATELET COUNT,PLT 212 K/uL (150-400); WHITE BLOOD CELL COUNT,WBC 9.33 K/uL (3.9-11.3)
[2024-11-16 06:44] LABS: A/G RATIO 0.9 (0.9-1.6); ALBUMIN 3.5 g/dL (3.4-5.0); BILIRUBIN TOTAL 0.5 mg/dL (0.2-1.0); CARBON DIOXIDE,CO2 28.9 mmol/L (21.0-32.0); CREATININE 1.1 mg/dL (0.6-1.0); EST CRCL DRUG DOSING (CG) 43.44 mL/min; POTASSIUM,K 3.3 mmol/L (3.5-5.1); PROTEIN TOTAL,TP 7.6 g/dL (6.4-8.2)
[2024-11-16] MEDS ORDERED: Sodium Chloride 0.9% 250 ML IV SCH (11:30)
[2024-11-16] MEDS: Sodium Chloride 0.9% 1,000 ML IV ONE (12:10)
[2024-11-16] MEDS: Potassium Chloride 20 MEQ Tab.ER PO ONE (12:56)
[2024-11-16 13:02] VITALS: BP 135/61; PULSE 59
== END 2024-11-16 14:35 | disposition home or self-care (01) | DRG 113 ==
LOC: MW.ED 11:31 → MW.MS 14:50
PROVIDERS: ADMIT Family Medicine; ATTEND Family Medicine
DX: J10.1 Influenza due to other identified influenza virus with other respiratory manifestations (principal); J96.01 Acute respiratory failure with hypoxia; Z66 Do not resuscitate; J44.9 Chronic obstructive pulmonary disease, unspecified; I11.0 Hypertensive heart disease with heart failure; I50.9 Heart failure, unspecified; H91.90 Unspecified hearing loss, unspecified ear; E78.00 Pure hypercholesterolemia, unspecified; G47.30 Sleep apnea, unspecified; K58.9 Irritable bowel syndrome, unspecified; M19.90 Unspecified osteoarthritis, unspecified site; G89.29 Other chronic pain; M54.9 Dorsalgia, unspecified; R42 Dizziness and giddiness; F41.9 Anxiety disorder, unspecified; E66.9 Obesity, unspecified; E86.0 Dehydration; F10.90 Alcohol use, unspecified, uncomplicated; Z91.040 Latex allergy status; Z88.0 Allergy status to penicillin; Z79.899 Other long term (current) drug therapy; Z68.38 Body mass index [BMI] 38.0-38.9, adult; Z98.890 Other specified postprocedural states; Z96.659 Presence of unspecified artificial knee joint; Z90.49 Acquired absence of other specified parts of digestive tract
CPT/HCPCS: 0241U; 36415; 71046; 71046-26; 71275; 71275-26; 80053; 83605; 83735; 83880; 84484; 85025; 85379; 93005; 93306; 96361; 96374; 97161-GP; 99285-25; A9270-GY; J0696; J1650; J1940; J2919; J3475; J3490; J7030; Q9967